=== PATIENT | male | born 1950 | race Caucasian/White ===

== ENCOUNTER 2025-07-01 18:09 | Emergency (ER) | payer MEDICARE, SELFPAY ==
[2025-07-01] VITALS (13 sets, daily range): BP systolic 105–143; BP diastolic 58–85; PULSE 62–110; RESP 10–20; TEMP 36.6–36.8; O2SAT 95–98; BMI 28.7
--- NOTE | 2025-07-01 18:22 | ED_ITS ---
Discharge Plan Disposition Patient Disposition: Home, Self-Care Condition: Good Prescriptions Prescriptions: New oxycodone 5 mg tablet 5 mg PO Q8H Qty: 12 0RF Referrals Follow up/Referrals: Liberty Cisneros APRN [Primary Care Provider, Medical] - See instructions Mc Grande DO [Staff Physician, Family Practice] - See instructions Activity Restrictions/Add. Instructions Additional Instructions/Restrictions: Please call Dr. Grande tomorrow to schedule a primary care provider visit. He can help you with your medications that you have not been prescribed. Your CT scan did not get read prior to your discharge please follow-up on MyChart for any acute findings that you may need additional specialist for. Clinical Impressions Clinical Impression: Elevated bilirubin Print Language Print Language: Mauritanian Discharge ED Provider: Emma Guido General Adult HPI General Chief complaint: Dizziness Stated complaint: blood sugar 80 , ketones in urine, Dr. Cisneros sent Time Seen by Provider: 07/01/25 18:15 History of Present Illness HPI narrative: Patient is a 75-year-old male with a past medical history of chronic back pain, A-fib on Eliquis, hypertension who presents to the emergency department from [facility]. States that he recently moved here from [place] and was getting a PCP and today was told that he had to have a urine sample. States that his urine sample had ketones in it and therefore he was sent here to the emergency department. Patient states that his urine has been darker than usual but he has not had any troubles urinating, has not had any abdominal pain nausea vomiting or diarrhea. Patient has not been sick recently. Patient denies any chest pain or shortness of breath. Patient states that he has been unable to get some of his medications filled typically takes daily Percocet patient is also on gabapentin. Patient takes Eliquis. Is unsure why they sent him here to the emergency department but is otherwise asymptomatic. Related Data Previous Rx's ?Medication ?Instructions ?Recorded oxycodone 5 mg tablet 5 mg PO Q8H #12 tabs 5 Allergies Allergy/AdvReac Type Severity Reaction Status Date / Time From Penicillin G Sodium Allergy Unknown Uncoded 08/27/17 15:16 Penicillin Allergy Unknown Uncoded 08/27/17 15:16 [facility] Disclaimer: The information contained in this section may have been updated after the patient was seen, as this information can be updated by other users. Social History Smoking Status: Current every day smoker alcohol intake: never current occupational status: other Travel in the last 8 weeks?: None ROS Obtained: Yes All systems reviewed & no additional complaints except as documented and Yes Systems reviewed as appropriate & no additional complaints except as documented Physical Exam General General appearance: alert and in no apparent distress Head Head exam: atraumatic, normocephalic and normal inspection Eye Eye exam: Present normal appearance, PERRL and EOMI; Absent scleral icterus ENT ENT exam: Present normal exam and normal external ear exam Neck Neck exam: Present normal inspection and full ROM Chest Chest inspection: Present normal inspection and symmetric chest wall rise Respiratory Respiratory exam: Present normal lung sounds bilaterally; Absent respiratory distress or wheezes Cardiovascular Cardiovascular exam: Present regular rate, normal rhythm and normal heart sounds Abdominal Exam Abdominal exam: Present soft and distention; Absent tenderness, guarding or rebound Extremities Exam Extremities exam: Present normal inspection and full ROM Back Exam Back exam: Present normal inspection and full ROM Neurological Exam Neurological exam: Present alert and oriented X3 Psychiatric Psychiatric exam: Present normal affect and normal mood Skin Skin exam: Present warm and dry Medical Decision Making Medical Records Medical records reviewed: Yes I reviewed the patient's medical records. Screening: Per USPSTF and CDC recommendations, given the prevalence of disease in our region, it is our hospital?s policy to screen for HIV and viral Hepatitis for all patients aged 18 and over and those with ongoing risk factors. Buck Inquiry Pt receiving controlled substance: No Vital Signs: 07/01/25 18:13 07/01/25 19:00 07/01/25 19:00 Temperature 98.2 F Temperature Source Oral Pulse Rate 83 Pulse Rate [Left Radial] 80 Respiratory Rate 20 10 L Blood Pressure 119/69 Blood Pressure [Right Arm] 143/72 H Blood Pressure Mean 91 Blood Pressure Mean [Right Arm] 95 02 Sat by Pulse Oximetry 97 95 Oxygen Delivery Method Room Air 07/01/25 19:15 07/01/25 19:30 07/01/25 19:30 Temperature Temperature Source Pulse Rate 82 69 Pulse Rate [Left Radial] Respiratory Rate 12 11 L Blood Pressure 124/73 Blood Pressure [Right Arm] Blood Pressure Mean 85 Blood Pressure Mean [Right Arm] 02 Sat by Pulse Oximetry 96 95 Oxygen Delivery Method 07/01/25 19:45 07/01/25 20:00 07/01/25 20:00 Temperature Temperature Source Pulse Rate 110 H 80 Pulse Rate [Left Radial] Respiratory Rate Blood Pressure 135/84 Blood Pressure [Right Arm] Blood Pressure Mean 92 Blood Pressure Mean [Right Arm] 02 Sat by Pulse Oximetry 98 95 Oxygen Delivery Method 07/01/25 20:15 07/01/25 20:30 07/01/25 20:30 Temperature Temperature Source Pulse Rate 65 77 Pulse Rate [Left Radial] Respiratory Rate Blood Pressure 143/85 H Blood Pressure [Right Arm] Blood Pressure Mean 104 Blood Pressure Mean [Right Arm] 02 Sat by Pulse Oximetry 96 96 Oxygen Delivery Method 07/01/25 20:48 07/01/25 21:00 07/01/25 21:01 Temperature Temperature Source Pulse Rate 83 74 69 Pulse Rate [Left Radial] Respiratory Rate Blood Pressure Blood Pressure [Right Arm] Blood Pressure Mean Blood Pressure Mean [Right Arm] 02 Sat by Pulse Oximetry 96 96 96 Oxygen Delivery Method 07/01/25 21:01 07/01/25 21:15 07/01/25 21:58 Temperature 97.9 F Temperature Source Pulse Rate 62 74 Pulse Rate [Left Radial] Respiratory Rate 18 Blood Pressure 105/58 L 105/69 L Blood Pressure [Right Arm] Blood Pressure Mean 74 Blood Pressure Mean [Right Arm] 02 Sat by Pulse Oximetry 97 Oxygen Delivery Method Room Air Lab Data Lab results reviewed: Yes I reviewed the patient's lab results. Lab Results 07/01/25 18:50: WBC 8.1, RBC 4.98, Hgb 15.6, Hct 45.6, MCV 91.6, MCH 31.3 H, MCHC 34.2, RDW 13.8, Plt Count 112 L, MPV 11.4 H, Neut % (Auto) 76.1, Lymph % (Auto) 14.1, Elbert % (Auto) 9.1, Eos % (Auto) 0.2, Baso % (Auto) 0.4, Neut # (Auto) 6.2, Lymph # (Auto) 1.2, Elbert # (Auto) 0.7, Eos # (Auto) 0.0, Baso # (Auto) 0.0, Sodium 134 L, Potassium 3.6, Chloride 97 L, Carbon Dioxide 29, Anion Gap 11.6, BUN 18, Creatinine 1.00, Estimated Creat Clear 89, Estimated GFR 73, Est GFR ( Amer) 89, Glucose 114 H, Calcium 9.5, Total Bilirubin 2.1 H, A ST 75 H, ALT 110 H, Alkaline Phosphatase 121, Total Creatine Kinase 63, Total Protein 7.4, Albumin 4.2, Globulin 3.2, Albumin/Globulin Ratio 1.3, Lipase 37 07/01/25 19:41: Urine Color Brown, Urine Appearance Cloudy, Urine pH 6.0, Ur Specific [place] 1.010, Urine Protein Negative, Urine Glucose (UA) Negative, Urine Ketones 1+, Urine Blood Negative, Urine Nitrate Negative, Urine Bilirubin Negative, Urine Urobilinogen 4.0, Ur Leukocyte Esterase Negative, Urine RBC 3-5, Urine WBC 5-10, Ur Squamous Epith Cells 20-50, Urine Bacteria 1+, Urine Mucus 1+ 07/01/25 20:31: Lactate 0.6 L 07/01/25 18:50 07/01/25 18:50 Orders (Tests/Meds): ED MEDICATIONS Discontinued Medications Generic Name Dose Route Start Last Admin Trade Name Freq PRN Reason Stop Dose Admin Iopamidol 75 ml 07/01/25 20:44 07/01/25 20:45 Iopamidol-370 (76%);100ml Bottle IV 07/01/25 20:45 75 ml ONCE ONE Administration Oxycodone/Acetaminophen 1 each 07/01/25 19:27 07/01/25 20:13 Oxycodone 5mg W/Apap 325mg Tablet PO 07/01/25 19:28 1 each ONCE ONE Administration Ropinirole HCl 1 mg 07/01/25 20:00 07/01/25 20:28 Ropinirole 1mg Tablet PO 07/01/25 20:01 1 mg ONCE ONE Administration Sodium Chloride 10 ml 07/01/25 20:44 07/01/25 20:45 Sodium Chloride 0.9% 10ml Syr (Rad Only) IV 07/31/25 20:43 10 ml NEEDED PRN Administration Maintain IV Site ORDERS Category Date Time Status CT abdomen pelvis w con Stat Cat Scan 07/01/25 20:17 Completed CBC w/Auto Diff [Complete Blood Count Auto Diff] Stat Lab 07/01/25 18:50 Completed CK [Creatine Kinase] Stat Lab 07/01/25 18:50 Completed CMP [Comprehensive Metabolic Panel] Stat Lab 07/01/25 18:50 Completed Lactic Acid Stat Lab 07/01/25 20:31 Completed Lipase Stat Lab 07/01/25 18:50 Completed UA [Urinalysis and Microscopic] Stat Lab 07/01/25 19:41 Completed Urine Culture Stat Micro 07/01/25 19:46 Completed Medical Decision Narrative: Is a 75-year-old gentleman with a past medical history of A-fib on Eliquis, chronic back pain, on Percocet and gabapentin who presents to the emergency department from a clinic with concern for ketones in his urine. Patient is otherwise asymptomatic. On arrival, patient was hemodynamically stable with unremarkable vital signs. Differential includes but not limited to: New onset diabetes, rhabdo myelosis, urinary tract infection, electrolyte abnormalities, amongst others. Patient's labs were reviewed and interpreted by myself: CBC showed no leukocytosis, hemoglobin was stable. CMP showed mildly elevated bilirubin at 2.1, mildly elevated LFTs. Lactate normal. UA was grossly contaminated with 20-50 squamous cells did have 5-10 white blood cells negative leuk esterase with some bacteria. Lipase normal. CK normal. Given patient's elevated LFTs and bilirubin, CT scan of the abdomen was obtained to rule out any signs of obstruction. Patient was otherwise asymptomatic I did not feel the patient's UA warranted treatment. Patient left AMA prior to CT scan being resulted. Patient was called next day to notify him of his incidental findings. Patient was otherwise discharged home in stable condition return precautions were discussed. Critical Care Critical Care Time Critical Care Time: No
--- OUTSIDE RECORDS SUMMARY | 2025-07-01 18:27 | XMS_ITS | Clinical Summary ---
Author Organization [facility] [place] [address] Care Team Providers Care Potato Spotter Name Role Phone Unavailable Primary Care Provider Unavailabl e Social History Tobacco Use Types Packs/Day Years Used Date Smoking Tobacco: Never Assessed Sex and Gender Information Value Date Recorded Sex Assigned at Not on file Legal Sex Male 7:31 AM EDT Gender Identity Not on file Sexual Orientation Not on file Plan of Treatment Health Maintenance Due Date Last Done Comments Annual Wellness Exam 1955 Hepatitis C Screening 1970 DTaP/TDaP/Td (1 - Tdap) 1971 Cologuard 1997 Colon Cancer Screening 1997 Colonoscopy 1997 FIT 1997 Sigmoidoscopy 1997 Virtual Colonography 1997 Pneumococcal Vaccine 50+ (1 of 1 - PCV) 2002 Zoster (1 of 2) 2002 COVID-19 Vaccine (2024-2 6 season) 2025 Influenza Vaccine (#1) 2025 Hepatitis B Vaccine Aged Out No longe r eligible based on patient's age to complete this topic Meningococcal B Vaccine Aged Out No l onger eligible based on patient's age to complete this topic
[2025-07-01 19:05] LABS: Hematocrit 45.6 % (42.0-52.0); Hemoglobin 15.6 g/dL (14.1-18.0); Immature Granulocytes % 0.1 %; Mean Corpuscular HGB Conc 34.2 g/dL (31.8-35.4); Mean Corpuscular Hemoglobin 31.3 pg (27.0-31.2); Mean Corpuscular Volume 91.6 fl (80-94); Nucleated Red Blood Cells % 0 %; Platelet Count 112 K/mm3 (142-424); Red Blood Count 4.98 M/mm3 (4.60-6.20); Red Cell Distribution Width-SD 47.0 fL; White Blood Count 8.1 K/mm3 (4.8-10.8)
[2025-07-01 19:07] LABS: Albumin Level 4.2 g/dl (3.5-5.0); Chloride 97 mmol/L (98-107)
[2025-07-01 19:08] LABS: Potassium 3.6 mmoL/L (3.5-5.1); Sodium 134 mmol/L (136-145)
[2025-07-01 19:10] LABS: Alanine Aminotransferase 110 U/L (12-78); Anion Gap 11.6 mEq/L (5-15); Aspartate Amino Transferase 75 U/L (17-59); Blood Urea Nitrogen 18 mg/dl (9-20); Carbon Dioxide 29 mmol/L (22.0-30.0); Creatinine Clearance Estimated 89 mL/min (50-200); Creatinine,Serum 1.00 mg/dl (0.66-1.25); Estimated Glomerular Filt Rate 73 ml/min (>60); GFR (African American) 89 ML/MIN (>60)
[2025-07-01 19:11] LABS: Albumin/Globulin Ratio 1.3 (1.1-1.8); Alkaline Phosphatase 121 U/L (38-126); Bilirubin,Total 2.1 mg/dl (0.2-1.3); Calcium 9.5 mg/dl (8.4-10.2); Creatine Kinase 63 U/L (55-170); Globulin 3.2 g/dL (1.3-3.2); Glucose 114 mg/dl (74-100); Lipase 37 U/L (23-300); Total Protein,Serum 7.4 g/dl (6.3-8.2)
[2025-07-01 19:51] LABS: Microscopic, Urine URINE MICROSCOPIC (MICROSCOPIC)
[2025-07-01 19:57] LABS: Color,Urine BROWN (Yellow); Glucose,Urine (UA) Negative (Negative); Ketones,Urine 1+ (Negative); Leukocyte Esterase,Urine Negative (Negative); PH,Urine 6.0 (5.0-8.5); Protein,Urine Negative (Negative); Specific Gravity, Urine 1.010 (1.005-1.030); Urobilinogen,Urine 4.0 EU/dl (0.2)
[2025-07-01 20:05] LABS: Bilirubin,Urine Negative (Negative)
[2025-07-01] MEDS: OXYCODONE 5MG W/APAP 325MG TABLET 1 EACH PO (20:13)
--- NOTE | 2025-07-01 20:17 | CT_ITS ---
PROCEDURE INFORMATION: Exam: CT Abdomen And Pelvis With Contrast Exam date and time: 07/01/2025 8:45 PM Age: 75 years old Clinical indication: Other: Elevated bilirubin and lfts TECHNIQUE: Imaging protocol: Computed tomography of the abdomen and pelvis with contrast. Radiation optimization: All CT scans at this facility use at least one of these dose optimization techniques: automated exposure control; mA and/or kV adjustment per patient size (includes targeted exams where dose is matched to clinical indication); or iterative reconstruction. Contrast material: ISOVUE; Contrast volume: 75 ml; Contrast route: IV; COMPARISON: No relevant prior studies available. FINDINGS: Heart: The heart is normal size with coronary artery and valvular calcifications. Liver: There is diffuse low attenuation throughout the liver consistent with fatty infiltration. No masses. Gallbladder and biliary ducts: The patient has had a cholecystectomy. There is intra-and extrahepatic ductal dilatation without obstructing mass or stone. Pancreas: There are pseudo cysts in the pancreas, measuring up to 1.8 cm in the head of the pancreas. Spleen: Normal. No splenomegaly. Adrenal glands: Normal. No mass. Kidneys and ureters: There are subcentimeter cysts throughout both kidneys. There are nonobstructing calculi in the left kidney. No ureteral stones or obstructive uropathy. Stomach and bowel: There is wall thickening and mucosal enhancement in the gastric antrum suspicious or peptic ulcer disease versus infectious or inflammatory gastritis. Appendix: No evidence of appendicitis. Intraperitoneal space: Unremarkable. No free air. No significant fluid collection. Vasculature: Unremarkable. No abdominal aortic aneurysm. Lymph nodes: Unremarkable. No enlarged lymph nodes. Urinary bladder: There is diffuse bladder wall thickening without surrounding inflammatory stranding consistent with chronic outflow obstruction. Reproductive: The prostate is enlarged, measuring 6.8 x 5.8 x 7.0 cm. Bones/joints: There are marked degenerative changes present. There is also posterior fusion hardware at the lumbosacral junction. Normal alignment. No acute fractures. There are multiple healed rib fractures. Soft tissues: There is bilateral gynecomastia. IMPRESSION: Fatty liver with gynecomastia. Infectious or inflammatory gastritis versus peptic ulcer disease in the gastric antrum. Pancreatic pseudocysts. Prostatomegaly with chronic bladder outflow obstruction. Other surgical changes as described above. Correlate with the patient's clinical history. COMMENTS: Consistent with the [employer]'s Incidental Findings Committee white paper (J Am Patricia Radiol 2018): Any incidental renal lesion less than 1 cm or classified as too small to characterize, or any incidental cystic renal lesion characterized as simple-appearing, is likely benign. No follow-up imaging is recommended for these lesions per consensus recommendations based on imaging criteria.
[2025-07-01] MEDS: ROPINIROLE 1MG TABLET 1 MG PO (20:28)
[2025-07-01] MEDS: SODIUM CHLORIDE 0.9% 10ML SYR (RAD ONLY) 10 ML IV (20:45)
[2025-07-01] MEDS: IOPAMIDOL-370 (76%);100ML BOTTLE 75 ML IV (20:45)
[2025-07-01 20:48] LABS: Bacteria,Urine 1+ /lpf; Mucus,Urine 1+ /lpf; Squamous Epithelial Cell,Urine 20-50 #/hpf (0-5)
== END 2025-07-01 22:02 | disposition home or self-care (01) ==
PROVIDERS: Emergency Provider Student in an Organized Health Care Education/Training Program; PCP Nurse Practitioner Family
DX: R82.4 Acetonuria (principal); R17 Unspecified jaundice; F17.210 Nicotine dependence, cigarettes, uncomplicated
CPT/HCPCS: 74177; 80053; 81001; 82550; 83605; 83690; 85025; 87086; 99284; Q9967

== ENCOUNTER 2025-07-06 12:32 | Emergency (ER) | payer MEDICARE, SELFPAY ==
[2025-07-06 12:54] VITALS: BP 169/67; PULSE 70; RESP 24; TEMP 36.7; O2SAT 99; BMI 27.9
[2025-07-06 12:58] VITALS: BP 169/67; PULSE 81; RESP 24; TEMP 36.7; O2SAT 99
--- NOTE | 2025-07-06 13:09 | ED_ITS ---
<Statement entered by Toi Lopez MD - 07/07/25 11:45> Toi Lopez MD: I was consulted by the [facility], and we discussed the complexity of the problems being addressed. I approved the treatment and management plan for this patient's care in the emergency department, thus performing a substantive portion of the medical decision making. Discharge Plan Disposition Patient Disposition: Home, Self-Care Prescriptions Prescriptions: New promethazine 12.5 mg tablet 12.5 mg PO TID PRN (Reason: nausea and vomiting) 3 Days Qty: 9 0RF Rx Instructions: 3 doses during day; last dose no later than 4 hr before bedtime No Action methocarbamol 750 mg tablet 750 mg PO TID Patient Comments: TAKE 1 TABLET BY MOUTH THREE TIMES DAILY gabapentin 800 mg tablet 800 mg PO TID Patient Comments: TAKE 1 TABLET BY MOUTH 3 TIMES A DAY hydroxyzine HCl 25 mg tablet 25 mg PO TID PRN Patient Comments: TAKE 1 TABLET BY MOUTH THREE TIMES DAILY NEEDED FOR ANXIETY lisinopril 5 mg tablet 5 mg PO DAILY Patient Comments: TAKE 1 TABLET BY MOUTH EVERY DAY mirtazapine 15 mg tablet 15 mg PO DAILY Patient Comments: TAKE 1 TABLET BY MOUTH EVERY DAY terazosin 10 mg capsule 10 mg PO DAILY Patient Comments: TAKE 1 CAPSULE BY MOUTH EVERY DAY escitalopram oxalate 10 mg tablet 10 mg PO DAILY Patient Comments: TAKE 1 TABLET BY MOUTH EVERY DAY metoprolol tartrate 25 mg tablet 25 mg PO BID Patient Comments: TAKE 1 TABLET BY MOUTH TWICE DAILY thiamine mononitrate (vit B1) [Vitamin B-1 (mononitrate)] 100 mg tablet 100 mg PO DAILY Patient Comments: TAKE 1 TABLET BY MOUTH DIRECTED Eliquis 5 mg tablet 5 mg PO BID Patient Comments: TAKE 1 TABLET BY MOUTH TWICE DAILY potassium chloride 20 mEq tablet extended release PO Patient Comments: TAKE 1 TABLET BY MOUTH FOUR TIMES DAILY bisacodyl [Dulcolax (bisacodyl)] 10 mg suppository 10 mg NE DAILY 1 Days Qty: 12 0RF magnesium citrate Solution 150 ml PO BID PRN (Reason: constipation) Qty: 296 0RF oxycodone 5 mg tablet 5 mg PO Q8H Qty: 12 0RF Referrals Follow up/Referrals: Glen Mulligan II, MD [Staff Physician, Gastroenterology] - See instructions Mc Grande DO [Primary Care Provider, Family Practice] - See instructions Activity Restrictions/Add. Instructions Additional Instructions/Restrictions: Thank you for allowing us to care for you. Your symptoms are likely due to opioid withdrawal. Please take the Phenergan 3 times a day as needed for nausea and vomiting. Continue to follow-up with Dr. Grande. You should follow-up with Dr. Mulligan due to the findings on your CAT scan because you may need an endoscopy(scope) to look at your stomach further. Please call his office to schedule a visit. Clinical Impressions Clinical Impression: Opioid withdrawal Print Language Print Language: Israeli Discharge ED Provider: Toi Lopez General Adult HPI General Chief complaint: PAIN Stated complaint: constipation Time Seen by Provider: 07/06/25 13:04 Mode of Arrival: Ambulatory Source of Information: Patient Description of Symptoms (Recalled from ER Triage Doc. by RN): PT c/o constipation and a headache for three days. History of Present Illness HPI narrative: This is a 75-year-old male with a history of chronic back pain, A-fib manage on Eliquis, and hypertension who presents to the emergency department today for evaluation of abdominal pain. Patient reports worsening abdominal pain for the last 4 days. His last bowel movement was 5 days ago and patient believes he is constipated which is causing his pain. He was evaluated by his primary care provider today and they recommended mag citrate. Patient reports he has been taking the mag citrate all morning with no relief in symptoms and his abdomen seems to be growing in size secondary to the increased intake. He says he feels like he needs to have a bowel movement but cannot get it out. He denies any pain with urination. Patient reports he typically has a daily, or every other day bowel movement. He is not vomiting but has felt nauseous. He denies any focal abdominal pain but reports it is throughout the abdomen and notes his abdomen feels tight. He denies any chest pain or shortness of breath. Related Data Home Medications ?Medication ?Instructions ?Recorded ?Confirmed apixaban 5 mg tablet (Eliquis) 5 mg PO BID 07/06/25 escitalopram oxalate 10 mg tablet 10 mg PO DAILY 07/0607/06/25 gabapentin 800 mg tablet 800 mg PO TID 07/06/2507/06 hydroxyzine HCl 25 mg tablet 25 mg PO TID PRN 07/06/25 07/06/25 lisinopril 5 mg tablet 5 mg PO DAILY 07/06/2507/06 methocarbamol 750 mg tablet 750 mg PO TID 07/06/25 metoprolol tartrate 25 mg tablet 25 mg PO BID 07/06/25 07/06/25 mirtazapine 15 mg tablet 15 mg PO DAILY 07/06/2506/10 potassium chloride 20 mEq meq PO 07/06/25 07/06/25 tablet,extended release terazosin 10 mg capsule 10 mg PO DAILY 07/06/2506/10 thiamine mononitrate (vit B1) 100 100 mg PO DAILY 06/1007/06/25 mg tablet (Vitamin B-1 (mononitrate)) Previous Rx's ?Medication ?Instructions ?Recorded oxycodone 5 mg tablet 5 mg PO Q8H #12 tabs 5 bisacodyl 10 mg rectal suppository 10 mg NE DAILY 1 da y #12 ea 07/06/25 (Dulcolax (bisacodyl)) magnesium citrate 150 ml PO BID PRN constipati on 07/06/25 #296 mL promethazine 12.5 mg tablet 12.5 mg PO TID PRN nausea and 07/06/25 vomiting 3 days #9 tabs Allergies Allergy/AdvReac Type Severity Reaction Status Date / Time erythromycin base AdvReac Mild Unknown Verified 07/06/25 11:36 allergy reaction tetracycline AdvReac Mild Vomiting Verified 07/06/25 11:36 From Penicillin G Sodium Allergy Unknown Rash Uncoded 07/06/25 11:36 Penicillin Allergy Unknown Rash Uncoded 07/06/25 11:36 PFS PFS Disclaimer: The information contained in this section may have been updated after the patient was seen, as this information can be updated by other users. Medical History (Updated 07/06/25 @ 14:06 by FLASH Allan) Elevated bilirubin HTN (hypertension), malignant Surgical History History of knee surgery Hx of decompression of ulnar nerve History of cholecystectomy Social History (Updated 07/06/25 @ 11:45 by Anisha Sharp MA) Smoking Status: Current every day smoker alcohol intake: never substance use type: denies use current occupational status: other Travel in the last 8 weeks?: None Have you lived/traveled outside US in past 30 days?: No Contact w/someone who lives/traveled outside US past 30 days?: No Exposure to someone with infectious disease in past 14 days?: No Do you have a fever (greater than 100.4 F or 38 C)?: No Have you tested positive for COVID-19?: No Exposed to someone with COVID-19 in past 14 days?: No Do you have a sore throat?: No Do you have a cough?: No Do you have any weakness?: No Do you have any diarrhea?: No Are you experiencing any unusual bleeding?: No Do you have any muscle aches/pain?: No Do you have any abdominal pain?: No Are you experiencing loss of taste or smell?: No Other Medical History Have you received the Pneumonia Vaccine: No ROS Obtained: Yes Systems reviewed as appropriate & no additional complaints except as documented Physical Exam General General appearance: alert and in no apparent distress Head Head exam: atraumatic and normocephalic Neck Neck exam: Present full ROM Respiratory Respiratory exam: Present normal lung sounds bilaterally; Absent respiratory distress Cardiovascular Cardiovascular exam: Present regular rate and normal rhythm Abdominal Exam Abdominal exam: Present soft and tenderness; Absent distention Comment: The abdomen is soft and nondistended. Patient reports generalized tenderness throughout the abdomen. There is no guarding or rebound tenderness. Negative Wilde sign. Neurological Exam Neurological exam: Present alert and oriented X3 Medical Decision Making Medical Records Screening: Per USPSTF and CDC recommendations, given the prevalence of disease in our region, it is our hospital?s policy to screen for HIV and viral Hepatitis for all patients aged 18 and over and those with ongoing risk factors. Buck Inquiry Pt receiving controlled substance: No Vital Signs: 07/06/25 12:54 07/06/25 12:58 Temperature 98.1 F 98.1 F Temperature Source Temporal Artery Scan Temporal Artery Scan Pulse Rate 81 Pulse Rate [Right] 70 Respiratory Rate 24 24 Blood Pressure 169/67 H Blood Pressure [Right Arm] 169/67 H Blood Pressure Mean [Right Arm] 101 Blood Pressure Source Automatic Cuff Blood Pressure Source [Right Arm] Automatic Cuff Blood Pressure Position Sitting Blood Pressure Position [Right Arm] Sitting 02 Sat by Pulse Oximetry 99 99 Oxygen Delivery Method Room Air Room Air Lab Data Lab Results 07/06/25 13:16: WBC 10.8, RBC 5.84, Hgb 18.6 H, Hct 52.8 H, MCV 90.4, MCH 31.7 H , MCHC 35.0, RDW 13.1, Plt Count 119 L, MPV 12.4 H, Neut % (Auto) 79.6, Lymph % (Auto) 11.0, Cache % (Auto) 8.1, Eos % (Auto) 0.2, Baso % (Auto) 0.6, Neut # (Auto) 8.6 H, Lymph # (Auto) 1.2, Cache # (Auto) 0.9, Eos # (Auto) 0.0, Baso # (Auto) 0.1, Sodium 135 L, Potassium 3.7, Chloride 97 L, Carbon Dioxide 25, Anion Gap 16.7 H, BUN 12, Creatinine 1.00, Estimated Creat Clear 87, Estimated GFR 73, Est GFR ( Amer) 89, Glucose 110 H, Calcium 10.7 H, Total Bilirubin 2.1 H, AST 54, ALT 74, Alkaline Phosphatase 143 H, Total Protein 10.9 H D, Albumin 4.8, Globulin 6.1 H, Albumin/Globulin Ratio 0.8 L, Lipase 85 07/06/25 13:16 07/06/25 13:16 Orders (Tests/Meds): ED MEDICATIONS Generic Name Dose Route Start Last Admin Trade Name Freq PRN Reason Stop Dose Admin Ropinirole HCl 1 mg 07/06/25 16:30 Ropinirole 1mg Tablet PO 07/06/25 16:31 ONCE ONE Sodium Chloride 10 ml 07/06/25 15:00 07/06/25 15:01 Sodium Chloride 0.9% 10ml Syr (Rad Only) IV 08/05/25 14:59 10 ml NEEDED PRN Administration Maintain IV Site Discontinued Medications Generic Name Dose Route Start Last Admin Trade Name Freq PRN Reason Stop Dose Admin Iopamidol 75 ml 07/06/25 15:00 07/06/25 15:00 Iopamidol-370 (76%);100ml Bottle IV 07/06/25 15:01 75 ml ONCE ONE Administration Promethazine HCl 25 mg 07/06/25 13:33 07/06/25 14:08 Promethazine Hcl 25mg/Ml 1ml Vial IV 07/06/25 13:34 25 mg ONCE ONE Administration Sodium Chloride 1,000 ml 07/06/25 13:19 07/06/25 14:08 Sodium Chloride 0.9% 500ml Bag IV 07/06/25 13:20 1,000 ml ONCE ONE Administration Sodium Chloride 25 ml 07/06/25 13:33 Sodium Chloride 0.9% 25ml Bag IV 07/06/25 13:34 ONCE ONE ORDERS Category Date Time Status CT abdomen pelvis w con Stat Cat Scan 07/06/25 13:17 Completed Consult Em Physician [CONS] Routine Cons 07/06/25 14:18 Active CBC w/Auto Diff [Complete Blood Count Auto Diff] Stat Lab 07/06/25 13:16 Completed CMP [Comprehensive Metabolic Panel] Stat Lab 07/06/25 13:16 Completed Lipase Stat Lab 07/06/25 13:16 Completed Opioid Risk-Male Personal hx rx drug abuse: Yes Age: 45+ Medical Decision Narrative: In summary, this is a 75-year-old male with a history of chronic back pain, A- fib on Eliquis, and hypertension who presents to the emergency department today for worsening abdominal pain of the last several days. Patient's last bowel movement was 5 days ago. He reports worsening generalized abdominal pain since then. Today he feels nauseous but has not vomited. He went to his primary care provider who told him to start mag citrate. Patient believes he needs a cleanout from below so he sought further care. Patient reports recent visit after being sent in by his primary care provider for ketones in urine. Upon chart review, patient had reassuring workup. Patient had CT of the abdomen and pelvis performed 3 days ago on 07/03/25 at which time there was no evidence of acute abdomen or intra-abdominal emergency. It is worth noting that the patient's chronic pain is managed with 7.5 mg of oxycodone 3 times a day. Patient reports last dose was late last night. On exam patient appears anxious. Vital signs are stable. He is dry heaving and diaphoretic but is not vomiting. The abdomen is soft and nondistended. Patient reports generalized tenderness to the abdomen but there is no guarding or rebound tenderness. Negative Wilde sign. Respiratory rate and effort are normal. Lungs are clear to auscultation bilaterally without adventitious sounds. Differential diagnoses include but are not limited to constipation, bowel obstruction, gastritis, opioid withdrawal, among others. We will obtain laboratory workup including CBC, CMP, lipase. Will obtain CT of the abdomen and pelvis with IV contrast. Will give IV fluid bolus and Zofran. 1:35PM Patient tells RN he actually took 5mg of oxycodone today but had not had it in the previous 3 days. Opioid withdrawal is most consistent with patient's current symptoms and physical exam. Patient declines Zofran. We will give phenergan for symptom management. I left a message with Dr. Grande's office (patient's PCP) to return call so we can clarify the plan for patient's opioid withdrawal given he used to fill prescriptions in [place] and is out of medications. US-guided IV performed and IV access has been obtained. 2:20PM We spoke with patient's PCP regarding management plan. We will rule out acute process and Dr. Grande will help coordinate follow up and management of patient's opioid use. Labs reviewed and nonactionable. Stable from labs obtained 5 days ago. No leukocytosis, anemia, significant electrolyte abnormality. Total bilirubin 2.1, same level as recent visit. Pending CT scan. CT scan stable from recent visit. Note of mucosal thickening of the gastric antrum and pylorus. Because of this patient will follow-up with GI. Patient was given Dr. Mulligan information and he will call to schedule a visit as he may need endoscopy in the future. Patient understands this. Dr. Grande is helping arrange follow-up for pain management. 4:30PM Patient remains well. Symptoms resolved following Phenergan. No emergent etiology at this time. Patient likely experiencing opioid withdrawal. He denies any abdominal pain or nausea since receiving the Phenergan. He will follow-up with his PCP and will continue to follow recommendations for pain management. Return precautions were discussed and understood. Patient is appropriate for safe discharge home at this time. Critical Care Critical Care Time Critical Care Time: No
--- NOTE | 2025-07-06 13:17 | CT_ITS ---
FINAL REPORT TECHNIQUE: After the administration of intravenous contrast, axial images were obtained through the abdomen and pelvis by computed tomography. This study was performed with technique to keep radiation doses as low as reasonably achievable, (ALARA). Individualized dose reduction techniques using automated exposure control or adjustment of the MA and/or KV according to the patient's size were employed. CLINICAL HISTORY: flank pain; uti COMPARISON: 06/28/2025 FINDINGS: Abdomen: The lung bases are clear. There is elevation of the left hemidiaphragm. A calcified gallstone measuring 2 cm is seen within a contracted gallbladder. The liver is normal in size and attenuation. The spleen is unremarkable. There is a cystic focus at the head of the pancreas measuring 1.8 cm, similar to prior exam. The adrenals are normal. The pancreas is unremarkable. The kidneys enhance appropriately. There is bilateral perinephric stranding. The aorta is normal in caliber. There is no free fluid or adenopathy. Again seen is abnormal mucosal thickening at the gastric antrum extending to the pylorus. There is also redemonstration of a rounded structure in the left upper quadrant measuring 2.2 cm with extensive surrounding inflammatory reaction, unchanged from prior exam. Pelvis: The appendix is not identified. Prostate is moderately enlarged. The urinary bladder is decompressed. There is no free fluid or adenopathy. There is advanced hypertrophic change of degenerative disc disease throughout the lumbar spine. IMPRESSION: Redemonstration of mucosal thickening at the gastric antrum and pylorus which could be related to infectious gastritis. Neoplastic involvement considered less likely. Recommend upper endoscopy for further evaluation. Pseudocyst versus epithelial cyst at the pancreatic head. Cholelithiasis. 2.2 cm structure in the left upper quadrant with surrounding inflammation, significance unclear but stable from prior exam. Recommend follow-up in 6 weeks and clinical correlation. Reviewed, Interpreted and Dictated by Lazaro Malave MD Transcribed by Sabine Ochoa Authenticated and [facility]
--- NOTE | 2025-07-06 13:52 | PC.NURSE ---
COWS- 20 pt states he usually takes 7.5mg of hydrocodone 3x a day. he has only had one dose in 4 days.
[2025-07-06 14:02] LABS: Hematocrit 52.8 % (42.0-52.0); Immature Granulocytes % 0.5 %; Mean Corpuscular HGB Conc 35.0 g/dL (31.8-35.4); Mean Corpuscular Hemoglobin 31.7 pg (27.0-31.2); Mean Corpuscular Volume 90.4 fl (80-94); Nucleated Red Blood Cells % 0 %; Platelet Count 119 K/mm3 (142-424); Red Blood Count 5.84 M/mm3 (4.60-6.20); Red Cell Distribution Width-SD 43.5 fL; White Blood Count 10.8 K/mm3 (4.8-10.8)
[2025-07-06 14:06] LABS: Albumin Level 4.8 g/dl (3.5-5.0); Chloride 97 mmol/L (98-107); Potassium 3.7 mmoL/L (3.5-5.1); Sodium 135 mmol/L (136-145)
[2025-07-06 14:07] LABS: Hemoglobin 18.6 g/dL (14.1-18.0)
[2025-07-06] MEDS: PROMETHAZINE HCL 25MG/ML 1ML VIAL 25 MG IV (14:08)
[2025-07-06] MEDS: SODIUM CHLORIDE 0.9% 500ML BAG 1000 ML IV (14:08)
[2025-07-06 14:09] LABS: Alanine Aminotransferase 74 U/L (12-78); Albumin/Globulin Ratio 0.8 (1.1-1.8); Alkaline Phosphatase 143 U/L (38-126); Anion Gap 16.7 mEq/L (5-15); Aspartate Amino Transferase 54 U/L (17-59); Bilirubin,Total 2.1 mg/dl (0.2-1.3); Blood Urea Nitrogen 12 mg/dl (9-20); Carbon Dioxide 25 mmol/L (22.0-30.0); Creatinine Clearance Estimated 87 mL/min (50-200); Creatinine,Serum 1.00 mg/dl (0.66-1.25); Estimated Glomerular Filt Rate 73 ml/min (>60); GFR (African American) 89 ML/MIN (>60); Globulin 6.1 g/dL (1.3-3.2); Lipase 85 U/L (23-300); Total Protein,Serum 10.9 g/dl (6.3-8.2)
[2025-07-06 14:10] LABS: Calcium 10.7 mg/dl (8.4-10.2); Glucose 110 mg/dl (74-100)
[2025-07-06] MEDS: IOPAMIDOL-370 (76%);100ML BOTTLE 75 ML IV (15:00)
[2025-07-06] MEDS: SODIUM CHLORIDE 0.9% 10ML SYR (RAD ONLY) 10 ML IV (15:01)
[2025-07-06 16:52] VITALS: BP 151/72; PULSE 81; RESP 18; TEMP 36.7; O2SAT 98
== END 2025-07-06 16:53 | disposition home or self-care (01) ==
PROVIDERS: Physician Assistant; Emergency Provider Emergency Medicine; PCP Internal Medicine
DX: R10.84 Generalized abdominal pain (principal); F11.23 Opioid dependence with withdrawal; K59.00 Constipation, unspecified; R11.0 Nausea; F17.210 Nicotine dependence, cigarettes, uncomplicated; I48.0 Paroxysmal atrial fibrillation; Z79.01 Long term (current) use of anticoagulants
CPT/HCPCS: 74177; 80053; 83690; 85025; 96374; 99282; 99284; J2550; J7040; Q9967

== ENCOUNTER 2025-07-29 03:06 | Observation (INO) | payer MEDICARE, SELFPAY ==
--- OUTSIDE RECORDS SUMMARY | 2024-01-27 03:45 | XMS_ITS ---
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 edema or discoloration noted Range of motion: ROM moderately limited, moderate pain induced. Hyperextension - Pain with Facet loading In addition to the above examination the patient does have a small amount of erythema in both lower extremities with 1+ edema. He says that he was given a recent Doppler evaluation that was negative for DVT. He has no weakness in the lower extremities. He has good range of motion of both knees. There is no swelling or discoloration at the knees. He does have mild knee tenderness to palpation but he has full range of motion. He has good range of motion of the left shoulder but it is tender along the posterior and anterior joint space as well as to a lesser degree at the AC joint on the left. May 29, 2023 Inspection: Spinal alignment no abnormal curvature noted Palpation: diffuse tenderness t hroughout lumbar region, most particularly over lower lumbar facet joints. Spasms absent
--- OUTSIDE RECORDS SUMMARY | 2024-08-15 16:00 | XMS_ITS ---
Author Organization [facility] Address [address] [place] [address] Care Team Providers Care Director Of Consumer Affairs Name Role Phone Yue Vick Primary Care Provider Benjamin Whitney Unavailable Self Referral, Self Unavailable Unavailable Migration, Provider Unavailable Unavailable Allergies Allergen (clinical drug ingredient) Drug/Non Drug Allergy documented on EMR Reaction Allergy Type Onset Date Status Penicillin hives Drug Allergy Active REASON FOR VISIT [facility]um To [facility] Conversion Encounter Medications Medication SIG (Take, Route, Frequency, Duration) Notes Start Date End Date Status Metoprolol Succinate ER *Please review and pick correct strength-formulation from Medispan options. If intended option is not shown, discontinue and re-order from Quick Search* Active Digoxin *Please review a nd pick correct strength-formulation from Medispan options. If intended option is not shown, discontinue and re-order from Quick Search* Active Percocet 325 MG-7.5 MG TABLET 1 TAB(S) ORALLY 4 PER DAY *Please review and pick correct strength-formulation from Medispan options. If intended option is not shown, discontinue and re-order from Quick Search* Active SEROquel *Please review a nd pick correct strength-formulation from Medispan options. If intended option is not shown, discontinue and re-order from Quick Search* Active Encounters Encounter Location Date Provider Diagnosis [facility] [address] [place] [address] 08/15/2024 Provider Migration Plan Of Treatment No Information Progress Notes * Alirio OBRIENDOB: 2 (75 yo M)Acc No.[id number]:08/15/2024 Patient: Alirio Contreras Provider: Pepe knight Migration :1950 A ge:74 Y S ex:Male Date:08/15/2024 Address:[address] [place] [address], [address] [facility], [id number] Pcp:Yue Vick Subjective: * Chief Complaints: * M ultum To Medispan Conversion Encounter * Medications: T akingSEROquel , Notes to Pharmacist: *Please review and pick correct strength-formulation from Medispan options. If intended option is not shown, discontinue and re-order from Quick Search*Metoprolol Succinate ER , Notes to Pharmacist: *Please review and pick correct strength-formulation from Medispan options. If intended option is not shown, discontinue and re-order from Quick Search*Digoxin , Notes to Pharmacist: *Please review and pick correct strength-formulation from Medispan options. If intended option is not shown, discontinue and re-order from Quick Search*Percocet 325 MG-7.5 MG TABLET 1 TAB(S) ORALLY 4 PER DAY , Notes to Pharmacist: *Please review and pick correct strength-formulation from Medispan options. If intended option is not shown, discontinue and re-order from Quick Search*Taking SEROquel , Notes to Pharmacist: *Please review and pick correct strength-formulation from Medispan options. If intended option is not shown, discontinue and re-order from Quick Search*Taking Metoprolol Succinate ER , Notes to Pharmacist: *Please review and pick correct strength-formulation from Medispan options. If intended option is not shown, discontinue and re-order from Quick Search*Taking Digoxin , Notes to Pharmacist: *Please review and pick correct strength-formulation from Medispan options. If intended option is not shown, discontinue and re-order from Quick Search*Taking Percocet 325 MG-7.5 MG TABLET 1 TAB(S) ORALLY 4 PER DAY , Notes to Pharmacist: *Please review and pick correct strength-formulation from Medispan options. If intended option is not shown, discontinue and re-order from Quick Search* * Allergies: P enicillin: hives - Allergy - Criticality High * Electronic signature of Prov ider Migration on 07/29/2025 at 03:16 AM EST Sign off status: Pending * Provider: Pepe knight Migration Date: 10/16/2023 Generated for Manuel medellin/Corinne/Yola on: 09/28/2024 03:16 AM EST
[2025-07-29] VITALS (16 sets, daily range): BP systolic 131–157; BP diastolic 67–106; PULSE 77–100; RESP 16–18; TEMP 36.4–37.7; O2SAT 93–98; BMI 27.1; BMI 29.4
--- OUTSIDE RECORDS SUMMARY | 2025-07-29 03:16 | XMS_ITS | Encounter Summary ---
Author Organization [facility] Address [address] [place] [address] Care Team Providers Care Informatica Architect Name Role Phone Pettry, Summer Unavailable Unavailable Rosa Skinner Unavailable Unavailable Yue Vick MD Primary Care Provider [phone] Pettry, Summer Unavailable Unavailable Pettry, Summer Unavailable Unavailable Ana Perea RN Unavailable Unavailable Pettry, Summer Unavailable Unavailable Pettry, Summer Unavailable Unavailable Reason for Visit * Reason Comments Med Refill Encounter Details Date Type Department Care Team (Late st Contact Info) Description 05/16/2021 Refill [facility] Medicine [address], [address] [place] [address] Glenna Winston MD [address] [facility] [address] [place] [address] Social History Tobacco Use Types Packs/Day Years Used Date Smoking Tobacco: Some Days Cigarettes 0.5 20 Started: 2020 Smokeless Tobacco: Never Alcohol Use Standard Drinks/Week Comments Yes 0 (1 standard drink = 0.6 oz pur e alcohol) daily PHQ-2 Answer Date Recorded Patient Health Questionnaire-2 Score 4 04/11/2021 Exercise Vital Sign Answer Date Recorde d On average, how many days pe r week do you engage in moderate to strenuous exercise (like a brisk walk)? 0 days 04/11/2021 On average, how many minutes do you engage in exercise at this level? 0 min 04/11/2021 Hunger Vital Sign Answer Date Recorded Within the past 12 months, y ou worried that your food would run out before you got the money to buy more. Never true 04/11/20 21 Within the past 12 months, t he food you bought just didn't last and you didn't have money to get more. Never true 04/11/2021 PRAPARE - Transportation Answer Date Re corded In the past 12 months, has l ack of transportation kept you from medical appointments or from getting medications? No 11/2020 In the past 12 months, has l ack of transportation kept you from meetings, work, or from getting things needed for daily living? No 04/11/2021 Housing Stability Vital Sign Answer [facility] Recorded In the last 12 months, was t here a time when you were not able to pay the mortgage or rent on time? No 04/11/2021 In the last 12 months, how many places have you lived? 1 04/11/2021 In the last 12 months, was t here a time when you did not have a steady place to sleep or slept in a nursing home (including now)? No 04/11/2021 Sex and Gender Information Value Date Recorded Sex Assigned at Male 12/24/2023 9:18 AM EDT Legal Sex Male 7:38 PM EDT Gender Identity Male 12/24/2023 9:18 AM EDT Sexual Orientation Not on file COVID-19 Exposure Response Date Recorded In the last month, have you been in contact with someone who was confirmed or suspected to have Coronavirus / COVID-19? No / Unsure 05/14/2021 7:26 PM EDT documented as of this encounter Miscellaneous Notes * Telephone Encounter - Kennedi Perez RN - 05/22/2021 10:32 AM EDT Called and spoke with patient's pharmacy. They tell me that the patient does have refills remainingon both of these medications. Pharmacy will prepare the prescriptions for the patient and notify him once ready. * Telephone Encounter - Kennedi Perez RN - 05/19/2021 8:23 AM EDT Called and spoke with patient, he says he doesn't think he has any refills left at the pharmacy. Advised I would check with them and renew if needed. Called pharmacy to make sure they had these on file. No answer, message states pharmacy opens at 9:00am. * Telephone Encounter - Kennedi Perez RN - 05/19/2021 8:16 AM EDT Seroquel and Lexapro renewed per Dr Angel in November 2020 for one year supply. Patient should stillhave refills remaining * Telephone Encounter - Sneha Singh, PharmD - 05/18/2021 10:08 PM EDT Refill request does not meet protocol. Sending to clinic triage for further review. Thank you! Additional information: Pt has a PCP listed outside [facility]? documented in this encounter Plan of Treatment Upcoming Encounters Date Type Department Care Team (Late st Contact Info) Description 09/07/2025 2:00 PM EST Office Visit [facility] [address] [facility] [place] [address] Karen Harkins MD [address] [place] [address] documented as of this encounter Visit Diagnoses Not on filedocumented in this encounter Additional Health Concerns Infection Onset Date Last Indicated Resolved Time COVID-19 Rule-Out 05/13/2022 05/13/2022 05/13/2022 8:45 PM EDT COVID-19 Rule-Out 07/24/2022 07/24/2022 07/24/2022 9:41 AM EST Respiratory Rule-Out 07/25/2022 07/25/2022 022 3:54 PM EST Respiratory Rule-Out 01/11/2023 01/11/2023 023 4:15 PM EDT Gastrointestinal Rule-Out 01/11/2023 01/11/2023 4:44 AM EDT COVID-19 Rule-Out 06/30/2023 06/30/2023 06/30/2023 9:02 PM EDT COVID-19 Rule-Out 12/31/2023 12/31/2023 12/31/2023 12:10 PM EDT Assessment Noted Time PHQ-9 Depression Total Score: 13 021 3:13 PM EDT A fall risk assessment has been complete d for the patient 04/11/2021 3:26 PM EDT documented as of this encounter Care Teams Informatica Architect Relationship Specialty Start Date End [place] [address] PCP - General 05/02/21 Summer Falk [employer] [facility] 03/10/21 06/26/21 Rosa Skinner Community Health Worker [employer] Helper 03/20/21 06/26/21 Summer Falk [employer] 03/16/22 04/17/22 [place] [address] [employer] 10/02/22 11/01/22 Ana Perea RN EMERGENCY SERVICES None Registered Nurse Emergency Medicine 06/30/23 06/30/23 [place] [address] [employer] 07/02/23 08/04/23 [place] [address] [employer]izer Feeder 12/25/23 01/24/24 documented as of this encounter
--- OUTSIDE RECORDS SUMMARY | 2025-07-29 03:16 | XMS_ITS | Clinical Summary ---
Author Organization [facility] [place] [address] Care Team Providers Care Horticultural Farm Manager Name Role Phone Unavailable Primary Care Provider [...]
--- OUTSIDE RECORDS SUMMARY | 2025-07-29 03:16 | XMS_ITS | Encounter Summary ---
Author Organization Healthcare Address [address] [place] [address] Care Team Providers Care Shared Services Manager Name Role Phone Yue Vick MD Primary Care Provider [phone] Summer Falk Unavailable Unavailable Encounter Details Date Type Department Care Team (Late st Contact Info) Description 08/27/2023 [facility] [address] [place] [address] Liberty Cisneros, LABORATORY TECHNICAL SPECIALIST [address] [facility] [place] [address] Daytime somnolence (Primary Dx) Social History Tobacco Use Types Packs/Day Years Used Date Smoking Tobacco: Some Days Cigarettes 0.5 20 Started: 2019 Smokeless Tobacco: Never Alcohol Use Standard Drinks/Week Comments Yes 0 (1 standard drink = 0.6 oz pure alcohol) Last drink 11/25/22 (hx drinking fifth vodka daily) Humiliation, Afraid, Rape, and Kick questionnair e Answer Date Recorded Within the last year, have y ou been afraid of your partner or ex-partner? No 07/09/2023 Within the last year, have y ou been humiliated or emotionally abused in other ways by your partner or ex-partner? No Within the last year, have y ou been kicked, hit, slapped, or otherwise physically hurt by your partner or ex-partner? No 07/09/2023 Within the last year, have y ou been raped or forced to have any kind of sexual activity by your partner or ex-partner? No 07/09/2023 PHQ-2 Answer Date Recorded Patient Health Questionnaire-2 Score 0 08/28/2023 Exercise Vital Sign Answer Date Recorde d [...] you got the money to buy more. Sometimes true Within the past 12 months, t he food you bought just didn't last and you didn't have money to get more. Never true PRAPARE - Transportation Answer Date Re corded In the past 12 months, has l ack of transportation kept you from medical appointments or from getting medications? Yes 06/11 In the past 12 months, has l ack of transportation kept you from meetings, work, or from getting things needed for daily living? Yes 07/09/2023 Housing Stability Vital Sign Answer [facility] e Recorded In the last 12 months, was t here a time when you were not able to pay the mortgage or rent on time? No 07/09/2023 [address] of [address] Lived in the Last Year Not on f ile 07/09/2023 In the last 12 months, was t here a time when you did not have a steady place to sleep or slept in a long-term (including now)? No 07/09/2023 CAGE ASSESSMENT Answer Date Recorded Due to the following: Medical status 07/17/2023 Maximum number of drinks you had on a given occasion in the last month? 4 drinks 07/17/2023 How many alcoholic Beverages do you typically drink in a week? 15 or more per week 07/17/2023 Have you ever felt you shoul d CUT down on your drinking? 0 07/17/2023 Have you been ANNOYED by peo ple criticizing your drinking? 0 07/17/2023 Have you felt GUILTY about your drinking? 0 07/17/2023 Have you had a drink first t [place] in the morning (EYE-MARINE ERECTOR) to steady your nerves or to get rid of a hangover? 0 07/17/2023 CAGE Questionnaire Score 0 023 Utilities Answer Date Recorded In the past 12 months has e electric, gas, oil, or water company threatened to shut off services in your home? No 07/09/2023 Sex and Gender Information Value Date Recorded Sex Assigned at Male 12/24/2023 9:18 AM EDT Legal Sex Male 7:38 PM EDT Gender Identity Male 12/24/2023 9:18 AM EDT Sexual Orientation Not on file documented as of this encounter Functional Status * Are you deaf or do you have serious difficulty hearing? Answer Date of Assessment Author No 12/05/2022 11:43 AM Diane Sales RN * Are you blind or do you have serious difficulty seeing, even when wearing glasses? Answer Date of Assessment Author No 12/05/2022 11:43 AM Diane Sales RN * Do you have serious difficulty walking or climbing stairs? Answer Date of Assessment Author Yes 12/05/2022 11:43 AM Diane Sales RN * Do you have serious difficulty dressing or bathing? Answer Date of Assessment Author No 12/05/2022 11:43 AM Diane Sales RN * Because of a physical, mental, or emotional condition, do you have serious difficulty doing errandsalone such as visiting the doctor? Answer Date of Assessment Author No 12/05/2022 11:43 AM Diane Sales RN * Over the past 2 weeks, how often have you been bothered by any of the following problems? Question Answer Date of Assessment Author Little interest or pleasure in doing things Not at all 08/28/2023 8:00 AM Jones Barger Feeling down, depressed, or hopeless Not at all 08/10 8:00 AM Jones Barger Patient Health Questionnaire-2 Score 0 08/10 8:00 AM Jones Barger documented as of this encounter Mental Status * Because of a physical, mental, or emotional condition, do you have serious difficulty concentrating, remembering, or making decisions? (5 years old or older) Answer Entry Date Author No 12/05/2022 11:43 AM Diane Sales, RN documented in this encounter Plan of Treatment Upcoming Encounters Date Type Department Care Team (Late st Contact Info) Description 09/07/2025 2:00 PM EST Office Visit [facility] [address] [place] [address] Karen Harkins MD [address] [place] [phone] documented as of this encounter Visit Diagnoses Diagnosis Daytime somnolence- Primary documented in this encounter Additional Health Concerns Infection Onset Date Last Indicated Resolved Time COVID-19 Rule-Out 12/31/2023 12/31/2023 12/31/2023 12:10 PM EDT Assessment Noted Time PHQ-9 Depression Total Score: 13 021 3:13 PM EDT A fall risk assessment has been complete d for the patient 03/20/2022 8:46 AM EDT A Body Mass Index follow-up plan has been documented for the patient 07/19/2023 3:35 PM EST documented as of this encounter Care Teams Shared Services Manager Relationship Specialty Start Date [place] [address] PCP - General 05/02/21 [place] [address] [employer] 12/25/23 01/24/24 documented as of this encounter
--- OUTSIDE RECORDS SUMMARY | 2025-07-29 03:16 | XMS_ITS | Encounter Summary ---
Author Organization [facility] Address [address] [place] [address] Care Team Providers Care Jigger Machine Operator Name Role Phone Yue Vick MD Primary Care Provider [phone] Ana Perea RN Unavailable Unavailable Pettry, Summer Unavailable Unavailable Pettry, Summer Unavailable Unavailable Encounter Details Date Type Department Care Team (Late Contact Info) Description 01/14/2023 Lab Requisition [facility] [address] [place] [address] Gopi Modi MD [address] [place] [address] Encounter for general adult medical examination without abnormal findings Social History Tobacco Use Types Packs/Day Years Used Date Smoking Tobacco: Some Days Cigarettes 0.5 20 Started: 2019 Smokeless Tobacco: Never Alcohol Use Standard Drinks/Week Comments Yes 0 (1 standard drink = 0.6 oz pure alcohol) Last drink 11/25/22 (hx drinking fifth vodka daily) PHQ-2 Answer Date Recorded Patient Health Questionnaire-2 Score 0 03/20/2022 Exercise Vital Sign Answer Date Recorde d [...] place to sleep or slept in a prison (including now)? No 04/11/2021 CAGE ASSESSMENT Answer Date Recorded Due to the following: Medical status 01/11/2023 Maximum number of drinks you had on a given occasion in the last month? 5 or more drinks 01/11/2023 How many alcoholic Beverages do you typically drink in a week? 8 - 14 per week 01/11/2023 Have you ever felt you shoul d CUT down on your drinking? 0 01/11/2023 Have you been ANNOYED by peo ple criticizing your drinking? 0 01/11/2023 Have you felt GUILTY about your drinking? 1 01/11/2023 Have you had a drink first t [place] in the morning (EYE-ANIMAL KEEPER) to steady your nerves or to get rid of a hangover? 0 01/11/2023 CAGE Questionnaire Score 1 023 Sex and Gender Information Value Date Recorded Sex Assigned at Male 12/24/2023 9:18 AM EDT Legal Sex Male 7:38 PM EDT Gender Identity Male 12/24/2023 9:18 AM EDT Sexual Orientation Not on file COVID-19 Exposure Response Date Recorded In the last 10 days, have yo u been in contact with someone who was confirmed or suspected to have Coronavirus/COVID-19? No / Unsure 12/20/2022 9:17 AM EDT documented as of this encounter Functional Status * Are you deaf or do you have serious difficulty hearing? Answer Date of Assessment Author No 12/05/2022 11:43 AM EDT Diane Greenfield RN * Are you blind or do you have serious difficulty seeing, even when wearing glasses? Answer Date of Assessment Author No 12/05/2022 11:43 AM EDT Diane Greenfield RN * Do you have serious difficulty walking or climbing stairs? Answer Date of Assessment Author Yes 12/05/2022 11:43 AM EDT Diane Greenfield RN * Do you have serious difficulty dressing or bathing? Answer Date of Assessment Author No 12/05/2022 11:43 AM CATHERINET Diane Greenfield RN * Because of a physical, mental, or emotional condition, do you have serious difficulty doing errandsalone such as visiting the doctor? Answer Date of Assessment Author No 12/05/2022 11:43 AM EDT Diane Greenfield RN * Calculated C-SSRS Risk Score (Lifetime/Recent) Answer Date of Assessment Author No Risk Indicated 01/17/2023 8:00 PM EDT Pepe Figueroa RN * Question Answer Date of Assessment Author 1. Wish to be (Past 1 Month) No 023 8:00 PM EDT Sebastian Figueroa RN 2. Non-Specific Active Suici juan Thoughts (Past 1 Month) No 01/17/2023 8:00 PM EDT Sebastian Figueroa RN 6. Suicidal Behavior (Lifetime) No 8:00 PM EDT Sebastian Figueroa RN documented as of this encounter Mental Status * Because of a physical, mental, or emotional condition, do you have serious difficulty concentrating, remembering, or making decisions? (5 years old or older) Answer Entry Date Author No 12/05/2022 11:43 AM EDT Diane Greenfield RN documented in this encounter Plan of Treatment Upcoming Encounters Date Type Department Care Team (Late st Contact Info) Description 09/07/2025 2:00 PM EST Office Visit [facility] [place] [address] [place] [address] Karen Harkins MD [address] [place] [phone] documented as of this encounter Procedures Procedure Name Priority Date/Time Associated Diagnosis Comments MULTI DRUG RESISTANCE TEST Routine 01/14/2023 12:00 PM EDT Encounter for general adult medical examination without abnormal findings documented in this encounter Results * Multi Drug Resistance Test (01/14/2023 12:00 PM EDT) Culture No growth at day 2 01/16/2023 10:40 AM EDT [facility] Swab (Nares and Briana Rectal) 01/14/2023 12:00 PM EDT 01/14/2023 3:35 PM EDT us Gopi Walker MD LAB MICROBIOLOGY - GENERAL ORDERABLES Final Result Performing Organization Address City/State/[facility] Co de Phone Number HEALTHCARE LAB [address] [place] [address] documented in this encounter Visit Diagnoses Diagnosis Encounter for general adult medical examination without abnormal findings documented in this encounter Additional Health Concerns Infection Onset Date Last Indicated Resolved Time COVID-19 Rule-Out 06/30/2023 06/30/2023 06/30/2023 9:02 PM EDT COVID-19 Rule-Out 12/31/2023 12/31/2023 12/31/2023 12:10 PM EDT Assessment Noted Time PHQ-9 Depression Total Score: 13 021 3:13 PM EDT A fall risk assessment has been complete d for the patient 03/20/2022 8:46 AM EDT A Body Mass Index follow-up plan has been documented for the patient 12/20/2022 10:31 AM EDT documented as of this encounter Care Teams Jigger Machine Operator Relationship Specialty Start Date End Date Yue Vick MD [address] [address] PCP - General 05/02/21 Ana Perea RN EMERGENCY SERVICES None Registered Nurse Emergency Medicine 06/30/23 06/30/23 [place] [address] [employer] 07/02/23 08/04/23 [place] [address] Hunting Sales Associate 12/25/23 01/24/24 documented as of this encounter
--- OUTSIDE RECORDS SUMMARY | 2025-07-29 03:16 | XMS_ITS | Patient Health Record ---
Author Organization [facility] Address [address] [place] [address] Care Team Providers Care Refuse Driver Name Role Phone Chetan Juares II Unavailable Kaleb Blanton MD Unavailable Unavailable Allergies No Known Allergies Reason For Referral No Information Medications Medication SIG (Take, Route, Frequency, Duration) Notes Start Date End Date Status acetaminophen-oxycodo ne 325 mg-7.5 mg 1 tab(s) orally 2 times a day; Duration: 28 days SEPTEMBER 2023 RX, DO NOT FILL SOONER THAN 28 DAYS, (OK TO FILL EARLY, ONLY IF CLOSED) Active metoprolol 100 mg 1 tab(s) orally once a day; Duration: 30 day(s) Active potassium chloride 20 mEq/100 mL as directed intravenously once; Duration: 3 dose(s) 09/26/2023 Active digoxin 125 mcg (0.125 mg) 1 tab(s) orally once a day; Duration: 30 day(s) 09/26/2023 Active Acetaminophen-Oxycodo ne Hydrochloride 325 mg-7.5 mg 1 tab(s) orally 2 times a day; Duration: 28 days AUGUST 2023 RX, DO NOT FILL SOONER THAN 28 DAYS, (OK TO FILL EARLY, ONLY IF CLOSED) Active finasteride 5 mg 1 tab(s) orally once a day; Duration: 30 day(s) 09/26/2023 Active citalopram 20 mg 1 tab(s) orally once a day; Duration: 30 day(s) Active Seroquel 25 mg 1 tab(s) orally 3 times a day; Duration: 30 day(s) Active tamsulosin 0.4 mg 1 cap(s) orally once a day; Duration: 30 day(s) Active mirtazapine 15 mg 1 tab(s) orally once a day (at bedtime); Duration: 30 day(s) Active Entresto 24 mg-26 mg 1 tab(s) orally 2 times a day Active Problems Problem Type SNOMED Code ICD Code Onset Dates Problem Status W/U Status Risk Notes Problem Shoulder joint pain (555733642) Pain in left shoulder (M25.512) Active confirmed Problem Pain of left knee joint (finding) (127276918214559 ) Pain in left knee (M25.562) Active confirmed Problem Pain in limb (40622163) Pain in left upper arm (M79.622) Active confirmed Problem Lumbar spondylosis (895812691) lumbar spondylosis (M47.816) Active confirmed Plan Of Treatment No Information Insurance Providers Payer Name Payer Address Payer Phone Subscriber Number Group Number Insured Name Patient Relationship to Insured Coverage Start Date Coverage End Date [employer] HMO [id number] [address] [address] [place] [address] [id number] Alirio Obrien Self - patient is the insured Medical (General) History Medical History History ICD Code High blood pressure diagnosed 2020, vannesa ged by Blayne MELGAR diagnosed 2021, managed by Surgical History Surgery Date(Month/Year) Back Fusion L3-[id number] BGO 2020 Hospitalization History Reason Date(Month/Year) [facility] admitted 09/2023
--- OUTSIDE RECORDS SUMMARY | 2025-07-29 03:17 | XMS_ITS | Encounter Summary ---
Author Organization [facility] Address [address] [place] [address] Care Team Providers Care Blow Off Worker Name Role Phone Yue Vick MD Primary Care Provider [phone] Pettry, Summer Unavailable Unavailable Pettry, Summer Unavailable Unavailable Shoot, Ana Mathews RN Unavailable Unavailable Pettry, Summer Unavailable Unavailable Pettry, Summer Unavailable Unavailable Reason for Visit * Reason Comments Med Refill Encounter Details Date Type Department Care Team (Late st Contact Info) Description 11/01/2021 Refill [facility] [address] [facility], [address] [place] [phone] Glenna Winston MD [address] [facility] [address] [place] [address] Social History Tobacco Use Types [...] place to sleep or slept in a retirement (including now)? No 04/11/2021 Sex and Gender Information Value Date Recorded Sex Assigned at Male 12/24/2023 9:18 AM EDT Legal Sex Male 7:38 PM EDT Gender Identity Male 12/24/2023 9:18 AM EDT Sexual Orientation Not on file documented as of this encounter Miscellaneous Notes * Telephone Encounter - Miladys Desai, PharmD - 11/02/2021 12:56 PM EST Refill request does not meet protocol. Sending to clinic for review. Additional info: Last prescribed by Dr. Glenna Winston documented in this encounter Plan of Treatment Upcoming Encounters Date Type Department Care Team (Late st Contact Info) Description 09/07/2025 2:00 PM EST Office Visit [facility] [place] [facility] [address] [facility] [place] [address] Karen Harkins MD [address] [place] [address] documented as of this encounter Visit Diagnoses [...] has been complete d for the patient 05/29/2021 12:39 PM EDT documented as of this encounter Care Teams Blow Off Worker Relationship Specialty Start Date [place] [address] PCP - General 05/02/21 Summer Falk [employer] 03/16/22 04/17/22 [place] [id number] [employer] Navigator 10/02/22 11/01/22 Ana Perea RN EMERGENCY SERVICES None Registered Nurse Emergency Medicine 06/30/23 06/30/23 [place] [id number] [employer] Navigator 07/02/23 08/04/23 [place] [address] Seafood Farmer 12/25/23 01/24/24 documented as of this encounter
--- OUTSIDE RECORDS SUMMARY | 2025-07-29 03:17 | XMS_ITS ---
Author Organization [facility] Address [address] [place] [address] Care Team Providers Care Self Sealing Fuel Tank Repairer Name Role Phone Yue Vick MD Primary Care Provider [phone] Active Problems * This document contains information received from the source organization and may not represent a complete record from that organization. Problem Noted Date Diagnosed Date Acute blood loss anemia 01/07/2024 Atrial fibrillation, unspecified type 01/04/2024 Shoulder joint pain 11/25/2023 Failed back syndrome 11/25/2023 Cervical spondylosis without myelopathy 11/25/19 24 Pain in limb 11/25/2023 Sacrococcygeal disorders, not elsewhere classifi ed 11/25/2023 PAF (paroxysmal atrial fibrillation) 11/12/2023 Lumbar spondylosis 07/22/2023 Alcoholic intoxication without complication 11/2022 Aortic root dilatation 12/20/2022 Alcohol use disorder, severe, dependence 022 Heart failure 05/14/2022 Chronic obstructive pulmonary disease, unspecifi ed 05/14/2022 Elevated liver enzymes 03/24/2022 Obesity (BMI 30-39.9) 03/24/2022 Apnea 01/01/2022 Preop cardiovascular exam 05/29/2021 Difficulty walking 04/11/2021 Dizziness 04/11/2021 Impaired cognition 04/11/2021 Impairment of balance 04/11/2021 Speech disturbance 04/11/2021 Substance abuse 04/11/2021 Assessment & Plan (04/17/2021 8:14 AM EDT): Reminded patient that we are available to help with abstinence from alcohol and other substances when he is ready. Dysphagia, oropharyngeal 11/22/2020 Overview (05/14/2022): -per chart review, patient has history of dysphagia and aspiration. Has needed multiple PEG tubes placed. Currently no PEG tube in place -patient last saw speech as an outpatient in February 2022, who recommended mechanical soft diet -will continue mechanical soft diet. -speech consulted for additional recs At risk for venous thromboembolism (VTE) 021 Overview (04/11/2021): Problem added by Discern Expert Rule: [id number]_3 Status post tracheostomy 10/11/2020 Thrombocytopenia 09/30/2020 Localized swelling of right lower extremity 09/10 Intoxication by drug, with delirium 09/28/2020 Soft tissue lesion of shoulder region 09/06/2020 Hip pain 09/06/2020 Anxiety 01/12/2020 Hypertension 01/12/2020 Restless leg syndrome 01/12/2020 Mood and affect disturbance 01/12/2020 Paroxysmal atrial fibrillation 11/16/2019 Assessment & Plan (04/17/2021 8:16 AM EDT): Continue Eliquis and metoprolol. Reminded patient of the importance of taking these regularly. KATE (obstructive sleep apnea) 11/16/2019 Stress fracture of lumbar vertebra with routine healing 10/07/2019 Lumbar facet joint pain 09/18/2019 Assessment & Plan (04/17/2021 8:12 AM EDT): Recommend taking advantage of referral that were offered, but patient declines to follow up with [facility]. Continue medications as prescribed. Enlarged prostate 08/14/2019 Recurrent pancreatitis 12/24/2018 Pancytopenia 06/25/2018 GERD (gastroesophageal reflux disease) 8 Basal cell carcinoma of skin 10/16/2017 Lumbosacral neuritis 10/16/2017 Prostate cancer 05/01/2017 Pancreatic cyst 04/26/2017 Alcoholic fatty liver 04/17/2017 Peripheral neuropathy 03/15/2017 Elevated PSA 12/06/2016 BPH with obstruction/lower urinary tract symptom s 12/05/2016 Hypokalemia 10/23/2016 Myofascial pain syndrome 09/07/2013 Spondylosis of lumbosacral r egion without myelopathy or radiculopathy 02/09/2013 Assessment & Plan (04/17/2021 8:13 AM EDT): Encouraged physical therapy as recommended by [facility] but patient declines saying he knows how to do his exercises at home and he plans to do that. Other chronic pain 11/28/2012 Alcohol abuse Current Treatment and Therapy Plans No current plan information found. Past Treatment and Therapy Plans No past plan information found. Lifetime Dose Tracking * Chemical Lifetime Dose Automatic Entry Manual Entr y Fluoro Time 21.66 minutes 21.66 minutes 0 minutes Air Kerma 89.96 mGy 89.96 mGy 0 mGy Resolved Problems Problem Noted Date Diagnosed Date Resolved Date Physical debility 01/15/2024 05/30/2025 Gastrointestinal hemorrhage with melena 01/04/2024 01/09/2024 Pain in left knee 11/25/2023 05/30/2025 Atrial fibrillation with RVR 07/08/2023 10/13/2023 Atrial fibrillation with rap id ventricular response 01/11/2023 01/09/2024 Hypernatremia 01/11/2023 10/13/2023 Alcoholic intoxication without complication 11/26/2022 12/05/2022 Other acidosis 07/30/2022 10/13/2023 Alcoholic ketoacidosis 07/24/202210/13 Acute kidney failure, unspecified 05/21/2022 05/30/2025 Urinary tract infection, site not specified 05/21/2022 05/30/2025 Rhabdomyolysis 05/14/2022 10/13/2023 Overview (05/14/2022): -patient presents to ED after being found down by his neighbor for 2 days after a fall. -CK elevated to 3527 -status post 2 L of IV fluids in the ED -patient also started on sodium bicarb 150 mEq and dextrose 5% at 75 mL/hour for high anion gap metabolic acidosis. PLAN: -Admit to progressive with telemetry under Dr. Thapa -Stopped sodium bicarb mIVF and started NS at 130ml/hr -Trend CK q4hr -Monitor strict I/Os -Fluid boluses as needed Hematuria 05/14/2022 10/13/2023 Overview (05/14/2022): -UA positive for ketones, nitrites, blood. Microscopy positive for RBC, WBC, squamous cells, and bacteria -Patient denies any symptoms of dysuria or previous episodes of hematuria -CTA abdomen / pelvis showed No evidence of acute traumatic injury involving the spleen, kidneys, adrenal glands or pancreas. There is mild bilateral symmetric perinephric stranding in association to moderate renal cortical loss. No renal collecting system dilatation. Prostate gland enlargement. Urinary bladder is minimally distended but otherwise appears to be intact. -Chart review mentions potential dx of prostate cancer, however unclear where dx from and if patient received any treatment PLAN: -Continue to monitor UOP -Consider additional imaging once more clinically stable -Hold Eliquis in setting of hematuria. WINSOME (acute kidney injury) 05/14/2022 Overview (05/14/2022): -Creatinine on admission 2.22 -Suspect secondary to rhabdomyolysis -Urine Na and Cr collected -Continue fluid resuscitation for treatment of rhabdomyolysis -Trend creatinine daily Bacteria in urine 05/14/2022 10/13/2023 Overview (05/14/2022): -UA positive for ketones, nitrites, blood. Microscopy positive for RBC, WBC, squamous cells, and bacteria -Patient denies any symptoms of dysuria. -Presence of squamous cells on UA suggest potential contaminated sample -Urine culture pending -Will hold on starting abx until culture results Shortness of breath 01/01/2022 05/30/20 25 Dysphonia 11/22/2020 05/30/[address] 11/15/20202020 Uses feeding tube 11/15/2020 04/17/2021 Alcohol withdrawal 10/10/2020 Acute respiratory failure with hypoxia 10/03/2020 12/06/2023 Nausea 01/27/2019 10/13/2023 Hypercalcemia 08/08/2018 10/13/2023 Ascites 07/27/2018 10/13/2023 Insomnia 10/16/2017 05/30/2025 Cholelithiasis 07/17/2017 10/13/2023 Paresthesia 10/23/2016 05/30/2025 High anion gap metabolic acidosis 10/13/2023 Fall 05/30/2025
--- OUTSIDE RECORDS SUMMARY | 2025-07-29 03:17 | XMS_ITS | Encounter Summary ---
Author Organization [facility] Address [address] [id number] Care Team Providers Care Anger Control Counselor Name Role Phone Yeu Vick MD Primary Care Provider Pettry, Summer Unavailable Unavailable ShootAna RN Unavailable Unavailable Pettry, Summer Unavailable Unavailable Pettry, Summer Unavailable Unavailable Encounter Details Date Type Department Care Team (Late st Contact Info) Description 07/16/2022 Community Orders Community Practice [address] [place] [address] Kaleb Blanton MD [address] [place] [address] Essential hypertension, malignant (Primary Dx); PAF (paroxysmal atrial fibrillation) (CMS/HCC); Jose catheter in place; Uses feeding tube Social History Tobacco Use Types Packs/Day Years Used Date Smoking Tobacco: Some Days Cigarettes 0.5 20 Started: 2019 Smokeless Tobacco: Never Alcohol Use Standard Drinks/Week Comments Yes 0 (1 standard drink = 0.6 oz pure alcohol) Last drink 03/18 (hx drinking fifth vodka daily) PHQ-2 Answer [...] on file documented as of this encounter Plan of Treatment Upcoming Encounters Date Type Department Care Team (Late st Contact Info) Description 09/07/2025 2:00 PM EST Office Visit [facility] [place] [address] [facility]. [address] [place] [address] Karen Harkins MD [address] [place] [address] documented as of this encounter Visit Diagnoses Diagnosis Essential hypertension, malignant- Primary PAF (paroxysmal atrial fibrillation) Atrial fibrillation Jose catheter in place Other postprocedural status Uses feeding tube documented in this encounter Additional Health Concerns Infection Onset Date Last Indicated Resolved Time COVID-19 Rule-Out 07/24/2022 07/24/2022 07/24/2022 9:41 AM [...] for the patient 03/20/2022 8:46 AM EDT documented as of this encounter Care Teams Anger Control Counselor Relationship Specialty Start Date [place] [address] PCP - General 05/02/21 [place] [address] [employer] Navigator 10/02/22 11/01/22 Ana Perea RN EMERGENCY SERVICES None Registered Nurse Emergency Medicine 06/30/23 06/30/23 [place] [address] [employer] Navigator 07/02/23 08/04/23 [place] [address] Lab Specialist 12/25/23 01/24/24 documented as of this encounter
--- OUTSIDE RECORDS SUMMARY | 2025-07-29 03:17 | XMS_ITS | Encounter Summary ---
Author Organization [facility] Address [address] [place] [address] Care Team Providers Care Protection Consultant Name Role Phone Yue Vick MD Primary Care Provider [phone] Pettry, Summer Unavailable Unavailable Pettry, Summer Unavailable Unavailable Brit, Ana Mathews RN Unavailable Unavailable Pettry, Summer Unavailable Unavailable Pettry, Summer Unavailable Unavailable Reason for Visit * Reason Comments Med Refill Encounter Details Date Type Department Care Team (Late st Contact Info) Description 10/23/2021 Refill [facility] [place] [address] [facility], [address] [place] [address] Ligia Angel MD [address] [facility] [address] [place] [address] Social History Tobacco Use Types Packs/Day Years [...] place to sleep or slept in a penitentiary (including now)? No 04/11/2021 Sex and Gender Information Value Date Recorded Sex Assigned at Male 12/24/2023 9:18 AM EDT Legal Sex Male 7:38 PM EDT Gender Identity Male 12/24/2023 9:18 AM EDT Sexual Orientation Not on file documented as of this encounter Miscellaneous Notes * Telephone Encounter - Mahamed Zurita - 10/26/2021 2:54 PM EST Refill request does not meet protocol. Sending to clinic for review. Additional info: Please review: PCP listed in [facility] is not on approved provider list. Has not been prescribed by Dr Angel according to records documented in this encounter Plan of Treatment Upcoming Encounters Date Type Department Care Team (Late st Contact Info) Description 09/07/2025 2:00 PM EST Office Visit [facility] [place] [address] [facility]. [address] [place] [address] Karen Harkins MD [address] [place] [phone] documented as of this encounter Visit Diagnoses [...] documented as of this encounter Care Teams Protection Consultant Relationship Specialty Start Date [place] [address] PCP - General 05/02/21 Summer Falk [employer] 03/16/22 04/17/22 [place] [address] [employer] Navigator 10/02/22 11/01/22 Ana Perea RN EMERGENCY SERVICES None Registered Nurse Emergency Medicine 06/30/23 06/30/23 [place] [address] [employer] Navigator 07/02/23 08/04/23 [place] [address] Stained Glass Artist 12/25/23 01/24/24 documented as of this encounter
--- OUTSIDE RECORDS SUMMARY | 2025-07-29 03:17 | XMS_ITS | Encounter Summary ---
Author Organization [facility] Address [address] [place] [address] Care Team Providers Care Television Servicer Name Role Phone Yue Vick MD Primary Care Provider [phone] Pettry, Summer Unavailable Unavailable Pettry, Summer Unavailable Unavailable Brit, Ana Mathews RN Unavailable Unavailable Pettry, Summer Unavailable Unavailable Pettry, Summer Unavailable Unavailable Reason for Visit * Reason Comments Med Refill Encounter Details Date Type Department Care Team (Late st Contact Info) Description 11/08/2021 Refill [facility] Community Medicine [address] [facility], [address] [place] [address] Ligia Angel MD [address] [facility] [address] [place] [address] Social History Tobacco Use Types [...] in a prison (including now)? No 04/11/2021 Sex and Gender [...] have Coronavirus / COVID-19? No / Unsure 11/07/2021 10:42 AM EST documented as of this encounter Miscellaneous Notes * Telephone Encounter - Miladys Desai, LisaD - 11/09/2021 7:50 AM EST Refill request does not meet protocol. Sending to clinic for review. Additional info: Last seen by Dr. Camp in April 2021, but assigned PCP is not on approved provider protocol list. documented in this encounter Plan of Treatment Upcoming Encounters Date Type Department Care Team (Late st Contact Info) Description 09/07/2025 2:00 PM EST Office Visit [facility] [place] [address] [place] [address] Karen Harkins MD [address] [place] [phone] documented as of this encounter Visit Diagnoses [...] documented as of this encounter Care Teams Television Servicer Relationship Specialty Start Date End [place] [address] PCP - General 05/02/21 Summer Falk [employer] 03/16/22 04/17/22 [place] [address] [employer] Navigator 10/02/22 11/01/22 Ana Perea RN EMERGENCY SERVICES None Registered Nurse Emergency Medicine 06/30/23 06/30/23 [place] [address] [employer] Navigator 07/02/23 08/04/23 [place] [address] Business Specialist 12/25/23 01/24/24 documented as of this encounter
--- OUTSIDE RECORDS SUMMARY | 2025-07-29 03:17 | XMS_ITS | Encounter Summary ---
Author Organization [facility] Address [address] [id number] Care Team Providers Care Bibliographic Services Specialist Name Role Phone Yue Vick MD Primary Care Provider [phone] Pettry, Summer Unavailable Unavailable ShootAna RN Unavailable Unavailable Pettry, Summer Unavailable Unavailable Pettry, Summer Unavailable Unavailable Encounter Details Date Type Department Care Team (Late st Contact Info) Description 08/14/2022 Community [facility] Community Practice [address] [place] [address] Kaleb Blanton MD [address] [place] [address] Daytime somnolence (Primary Dx); Prostate cancer (CMS/HCC) Social History Tobacco Use Types Packs/Day Years [...] place to sleep or slept in a chcf (including now)? No 04/11/2021 Sex and Gender [...] suspected to have Coronavirus/COVID-19? No / Unsure 07/24/2022 8:18 AM EST documented as of this encounter Plan of Treatment Upcoming Encounters Date Type Department Care Team (Late st Contact Info) Description 09/07/2025 2:00 PM EST Office Visit [facility] [place] [address] [facility]. [address] [place] [address] Karen Harkins MD [address] [place] [phone] documented as of this encounter Visit Diagnoses Diagnosis Daytime somnolence- Primary Prostate cancer (CMS/HCC) Malignant neoplasm of prostate documented in this encounter Additional Health Concerns Infection Onset Date Last Indicated Resolved Time Respiratory Rule-Out 01/11/2023 01/11/2023 023 4:15 PM [...] documented as of this encounter Care Teams Bibliographic Services Specialist Relationship Specialty Start Date [place] [address] PCP - General 05/02/21 [place] [address] [employer] Navigator 10/02/22 11/01/22 Ana Perea RN EMERGENCY SERVICES None Registered Nurse Emergency Medicine 06/30/23 06/30/23 [place] [address] [employer] Navigator 07/02/23 08/04/23 [place] [address] Criminal Legal Assistant 12/25/23 01/24/24 documented as of this encounter
--- OUTSIDE RECORDS SUMMARY | 2025-07-29 03:17 | XMS_ITS | Encounter Summary ---
Author Organization [facility] Address [address] [place] [address] Care Team Providers Care Postal Carrier Name Role Phone Yue Vick MD Primary Care Provider [phone] Pettry, Summer Unavailable Unavailable Pettry, Summer Unavailable Unavailable Brit, Ana Mathews RN Unavailable Unavailable Pettry, Summer Unavailable Unavailable Pettry, Summer Unavailable Unavailable Reason for Visit * Reason Comments Med Refill Encounter Details Date Type Department Care Team (Late st Contact Info) Description 01/31/2022 Refill [facility] Community Medicine [address] [facility], [address] [place] [address] Ligia Angel MD [address] [facility] [address] [place] [address] Social History Tobacco Use Types [...] place to sleep or slept in a alf (including now)? No 04/11/2021 Sex and Gender [...] suspected to have Coronavirus/COVID-19? No / Unsure 01/01/2022 11:13 AM EDT documented as of this encounter Miscellaneous Notes * Telephone Encounter - Chela Camp MD - 02/02/2022 12:19 PM EDT Mr. Obrien is no longer a patient of our clinic. Thanks. documented in this encounter Plan of Treatment Upcoming Encounters Date Type Department Care Team (Late st Contact Info) Description 09/07/2025 2:00 PM EST Office Visit [facility] [place] [address] [facility]. [address] [place] [address] Karen Harkins MD [address] [place] [address] documented as of this encounter Visit Diagnoses [...] has been complete d for the patient 01/01/2022 11:23 AM EDT documented as of this encounter Care Teams Postal Carrier Relationship Specialty Start Date End [place] [address] PCP - General 05/02/21 Summer Falk [employer] Navigator 03/16/22 04/17/22 [place] [address] [employer] Navigator 10/02/22 11/01/22 Ana Perea RN EMERGENCY SERVICES None Registered Nurse Emergency Medicine 06/30/23 06/30/23 [place] [address] [employer] Navigator 07/02/23 08/04/23 [place] [address] Application Integration Engineer 12/25/23 01/24/24 documented as of this encounter
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
--- OUTSIDE RECORDS SUMMARY | 2025-07-29 03:17 | XMS_ITS | Clinical Summary ---
Author Organization [facility] Address [address] [place] [id number] Care Team Providers Care Production Support Manager Name Role Phone Vic Eddy MD Primary Care Provider [phone] Allergies Active Allergy Reactions Criticality Noted Date Comments Erythromycin Other (See Comments) 08/24/2024 Penicillins Other (See Comments) 05/04/2024 When he was 17 yrs old Tetracyclines & Related Other (See Comments) Social History Tobacco Use Types Packs/Day Years Used Date Smoking Tobacco: Every Day Cigarettes Smokeless Tobacco: Never Tobacco Cessation:Ready to Q uit: Not Asked; Counseling Given: Not Answered Alcohol Use Standard Drinks/Week Comments Not Currently 0 (1 standard drink = 0.6 oz pur e alcohol) Sex and Gender Information Value Date Recorded Sex Assigned at Not on file Legal Sex Male 3:25 PM EST Gender Identity Not on file Sexual Orientation Not on file Last Filed Vital Signs Vital Sign Reading Time Taken Comments Blood Pressure 115/68 08/24/2024 6:05 PM EST Pulse 82 08/24/2024 6:05 PM EST Temperature 36.7 C (98.1 F) 08/24/2024 3:33 PM EST Respiratory Rate 20 08/24/2024 3:33 PM EST Oxygen Saturation 100% 08/24/2024 5:13 PM EST Inhaled Oxygen Concentration - - Weight - - Height - - Body Mass Index - - Plan of Treatment Health Maintenance Due Date Last Done Comments Hepatitis C Screening 1950 Pneumococcal 50+ (1 of 2 - PCV) 1971 Colonoscopy 1997 PSA YEARLY 2002 Shingrix (#1) 2002 DTap,Tdap,and Td (2 - Td or Tdap) 12/03/2023 12/02/2013 Influenza Vaccine (#1) 2025 RSV Vaccine (60+ or ) (1 - 1-dose 75+ series) 2027 Abdominal Aortic Aneurysm Screening Completed 10/14/2024, 10/14/2024 HPV Aged Out No longer eligi ble based on patient's age to complete this topic Meningococcal conjugate alize nt 4 (MCV4) Aged Out No longer eligible b ased on patient's age to complete this topic RSV Immunization (<20 months) Aged Out No longer eligible based on patient's age to complete this topic Insurance [employer] GOLD CHOICE/PLUS HMO ([facility]) Member Subscriber Plan / Payer ( fective 2024-Present) Name:Alirio Obrien Relation to Subscriber:Self Name:Alirio Obrien Payer ID:[id number] ([facility]) Type:Not on file Address: [address] [id number] MEDICAID [place] on file Care Teams Production Support Manager Relationship Specialty Start Date End Date Vic Eddy MD PCP - General Internal Medicine 08/24/24
--- NOTE | 2025-07-29 03:21 | HMH.EDGENADL ---
Discharge Plan Disposition Patient Disposition: Admitted Condition: Fair Clinical Impressions Clinical Impression: Nausea & vomiting, Adrenal mass, Abdominal pain Discharge ED Provider: Kristin Figueroa Adult HPI General Chief complaint: Abdominal Pain Stated complaint: Abd Pain Time Seen by Provider: 07/29/25 03:09 History of Present Illness HPI narrative: 75-year-old male presents to the ER for mid abdominal pain with nausea and vomiting. Patient reports 14 hours prior to arrival he started having abdominal pain and demonstrates to his epigastric region. He reports it feels similar to pancreatitis which he reports a history of in the past. He states he used to be an alcoholic but has not drank in the last 18 months. He states he had a good lunch with fresh food and does not believe the food caused his symptoms. He states since his symptoms started he has not been able to tolerate anything by mouth. He reports nonbloody, nonbilious emesis. He denies diarrhea. Denies dysuria or hematuria. Denies chest pain or difficulty breathing. Patient has been evaluated multiple times in the last month including a recent evaluation for abdominal pain where it was believed she was in opioid withdrawal. Patient reports he has attempted to take his Percocet and gabapentin but these immediately came back up. Denies fevers or chills. No headache or dizziness. No other associated symptoms Related Data Home Medications ?Medication ?Instructions ?Recorded ?Confirmed apixaban 5 mg tablet (Eliquis) 5 mg PO BID 07/06/25 07/23/25 escitalopram oxalate 10 mg tablet 10 mg PO DAILY 07/06/25 07/23/25 gabapentin 800 mg tablet 800 mg PO TID 07/06/25 07/23/25 hydroxyzine HCl 25 mg tablet 25 mg PO TID PRN 07/06/25 07/23/25 lisinopril 5 mg tablet 5 mg PO DAILY 07/06/25 07/23/25 methocarbamol 750 mg tablet 750 mg PO TID 07/06/25 07/23/25 mirtazapine 15 mg tablet 15 mg PO DAILY 07/06/25 07/23/25 terazosin 10 mg capsule 10 mg PO DAILY 07/06/25 07/23/25 thiamine mononitrate (vit B1) 100 100 mg PO DAILY 07/06/25 07/23/25 mg tablet (Vitamin B-1 (mononitrate)) potassium chloride 20 mEq 20 meq PO TID 07/23/25 07/23/25 tablet,extended release Previous Rx's ?Medication ?Instructions ?Recorded promethazine 12.5 mg tablet 12.5 mg PO TID PRN nausea and 07/06/25 vomiting 3 days #9 tabs metaxalone 800 mg tablet 800 mg PO TID PRN muscle pain #90 07/23/25 tabs metoprolol tartrate 25 mg tablet 25 mg PO BID #60 tabs 07/23/25 oxycodone-acetaminophen 7.5 mg-325 1 tab PO Q8H PRN pain #45 tabs 07/23/25 mg tablet ropinirole 0.5 mg tablet 0.5 mg PO DAILY #30 tabs 07/23/25 Allergies Allergy/AdvReac Type Severity Reaction Status Date / Time penicillin G Allergy Mild Rash Verified 07/23/25 13:36 Penicillins Allergy Mild Rash Verified 07/23/25 13:36 erythromycin base AdvReac Mild Unknown Verified 07/23/25 13:36 allergy reaction tetracycline AdvReac Mild Vomiting Verified 07/23/25 13:36 PFS PFS Disclaimer: The information contained in this section may have been updated after the patient was seen, as this information can be updated by other users. Medical History Constipation Elevated bilirubin HTN (hypertension), malignant Surgical History History of cholecystectomy History of knee surgery Hx of decompression of ulnar nerve Social History (Updated 07/23/25 @ 13:45 by Chloe Heart CMA) Smoking Status: Current every day smoker tobacco type: cigarettes smoking status start date: 55 yo alcohol intake: former year quit: 2023 substance use type: denies use current occupational status: retired Travel in the last 8 weeks?: None Do you have any abdominal pain?: Yes Other Medical History Have you received the Pneumonia Vaccine: No ROS Obtained: Yes Systems reviewed as appropriate & no additional complaints except as documented Per HPI Physical Exam General General appearance: alert and in no apparent distress Head Head exam: atraumatic and normocephalic Eye Eye exam: Present PERRL and EOMI ENT ENT exam: Present mucous membranes moist Neck Neck exam: Present normal inspection and full ROM Chest Chest inspection: Present symmetric chest wall rise Respiratory Respiratory exam: Present normal lung sounds bilaterally; Absent respiratory distress, wheezes or stridor Cardiovascular Cardiovascular exam: Present regular rate and normal rhythm Abdominal Exam Abdominal exam: Present soft and tenderness (Epigastric and periumbilical, large diastases present but no hernia); Absent distention, guarding or rebound Extremities Exam Extremities exam: Present full ROM and normal capillary refill; Absent edema Neurological Exam Neurological exam: Present alert and oriented X3; Absent motor sensory deficit Psychiatric Psychiatric exam: Present normal affect and normal mood Skin Skin exam: Present warm and dry Medical Decision Making Medical Records Medical records reviewed: Yes I reviewed the patient's medical records. Screening: Per USPSTF and CDC recommendations, given the prevalence of disease in our region, it is our hospital?s policy to screen for HIV and viral Hepatitis for all patients aged 18 and over and those with ongoing risk factors. MR Goldsmith: Work up from the end of June for abdominal pain and constipation was reviewed. CT at that time demonstrated mucosal thickening of the gastric antrum, cholelithiasis, stable right upper quadrant lesion from previous exam. Labs from that visit demonstrated nonactionable CBC, not acutely actionable CMP there was slight hyperbilirubinemia and mild elevation of alkaline phosphatase, normal lipase. Buck Inquiry Pt receiving controlled substance: No Vital Signs: 07/29/25 03:06 07/29/25 03:25 07/29/25 03:30 Temperature Temperature Source Pulse Rate 89 100 H 90 Pulse Rate [Right] Respiratory Rate Blood Pressure 156/106 H 145/98 H 155/76 H Blood Pressure [Right Arm] Blood Pressure Mean [Right Arm] Blood Pressure Source [Right Arm] Blood Pressure Position [Right Arm] 02 Sat by Pulse Oximetry 96 98 97 Oxygen Delivery Method 07/29/25 03:31 Temperature 98.3 F Temperature Source Oral Pulse Rate Pulse Rate [Right] 77 Respiratory Rate 18 Blood Pressure Blood Pressure [Right Arm] 155/76 H Blood Pressure Mean [Right Arm] 102 Blood Pressure Source [Right Arm] Automatic Cuff Blood Pressure Position [Right Arm] Left Lateral 02 Sat by Pulse Oximetry 96 Oxygen Delivery Method Room Air Lab Data Lab Results 07/29/25 03:19: WBC 8.5, RBC 4.88, Hgb 15.7, Hct 45.6, MCV 93.4, MCH 32.2 H, MCHC 34.4, RDW 13.0, Plt Count 114 L, MPV 11.1 H, Neut % (Auto) 82.2 H, Lymph % (Auto) 10.7, [place] % (Auto) 6.0, Eos % (Auto) 0.2, Baso % (Auto) 0.5, Neut # (Auto) 7.0, Lymph # (Auto) 0.9, [place] # (Auto) 0.5, Eos # (Auto) 0.0, Baso # (Auto) 0.0, PT 11.4, INR 1.03, Sodium 140, Potassium 4.0, Chloride 102, Carbon Dioxide 26, Anion Gap 16.0 H, BUN 13, Creatinine 0.80, Estimated Creat Clear 84, Estimated GFR 95, Est GFR ( Amer) 115, Glucose 127 H, Lactate 1.4, Calcium 9.6, Total Bilirubin 0.7, AST 32, ALT 30, Alkaline Phosphatase 119, Troponin I < 0.01, Total Protein 7.6 D, Albumin 4.4, Globulin 3.2, Albumin/Globulin Ratio 1.4, Lipase 61 07/29/25 04:15: Urine Color Yellow, Urine Appearance Clear, Urine pH 6.0, Ur Specific Mineral 1.010, Urine Protein Negative, Urine Glucose (UA) Negative, Urine Ketones 1+, Urine Blood Trace-i, Urine Nitrate Negative, Urine Bilirubin Negative, Urine Urobilinogen 0.2, Ur Leukocyte Esterase Negative, Urine RBC Occasional, Urine WBC None, Ur Squamous Epith Cells None, Urine Bacteria None 07/29/25 03:19 07/29/25 03:19 Orders (Tests/Meds): ED MEDICATIONS Discontinued Medications Generic Name Dose Route Start Last Admin Trade Name Anh PRN Reason Stop Dose Admin Hydromorphone HCl 1 mg 07/29/25 03:09 07/29/25 03:28 Hydromorphone 2mg/Ml Syringe IV 07/29/25 03:10 1 mg ONCE ONE Administration Lactated Ringer's 1,000 mls @ 999 mls/hr 07/29/25 03:09 07/29/25 04:45 Lactated Ringer's 1000 Ml Bag IV 07/29/25 04:09 Infused .Q1H1M ONE Infusion Iopamidol 80 ml 07/29/25 04:08 07/29/25 04:09 Iopamidol-370 (76%);100ml Bottle IV 07/29/25 04:09 80 ml ONCE ONE Administration Oxycodone/Acetaminophen 1 each 07/29/25 04:43 07/29/25 04:44 Oxycodone 7.5mg W/Apap 325mg Tablet PO 07/29/25 04:44 1 each ONCE ONE Administration Promethazine HCl 12.5 mg 07/29/25 03:09 07/29/25 03:29 Promethazine Hcl 25mg/Ml 1ml Vial IV 07/29/25 03:10 12.5 mg ONCE ONE Administration Sodium Chloride 25 ml 07/29/25 03:09 07/29/25 03:29 Sodium Chloride 0.9% 25ml Bag IV 07/29/25 03:10 25 ml ONCE ONE Administration Sodium Chloride 50 ml 07/29/25 04:08 07/29/25 04:09 0.9 % Sodium Chloride 50 Ml Vial IV 07/29/25 04:09 50 ml ONCE ONE Administration Sodium Chloride 10 ml 07/29/25 04:08 07/29/25 04:09 Sodium Chloride 0.9% 10ml Syr (Rad Only) IV 07/29/25 04:09 10 ml ONCE ONE Administration ORDERS Category Date Time Status CT angio abdomen pelvis Stat Cat Scan 07/29/25 03:30 Completed Complete Blood Count Auto Diff Stat Lab 07/29/25 03:19 Completed Comprehensive Metabolic Panel Stat Lab 07/29/25 03:19 Completed HIV Combo Stat Lab 07/29/25 Completed Hepatitis C Ab Qual. W/ RFX Stat Lab 07/29/25 Completed Lactic Acid Stat Lab 07/29/25 03:19 Completed Lipase Stat Lab 07/29/25 03:19 Completed Prothrombin Time INR Stat Lab 07/29/25 03:19 Completed Troponin I Q3H Lab 07/29/25 06:15 Ordered Troponin I Q3H Lab 07/29/25 09:15 Ordered Troponin I Stat Lab 07/29/25 03:19 Completed Urinalysis and Microscopic Stat Lab 07/29/25 04:15 Completed Medical Decision Narrative: In summary, this 75-year-old male with a history of chronic pain on Percocet and gabapentin, atrial fibrillation on Eliquis, hypertension, previous pancreatitis, previous alcohol use disorder presents to the emergency department today with mid/epigastric abdominal pain with nausea and vomiting for the last 12 to 14 hours. Nonbloody, nonbilious emesis, denies diarrhea, denies dysuria or hematuria. On initial evaluation patient is hemodynamically stable, afebrile, GCS 15, cardiopulmonary exam notable for atrial fibrillation, +1 bilateral lower extremity pitting edema, tenderness in the epigastric to periumbilical region with no rebound or guarding, no peritonitic findings, patient has diastases without obvious hernia. He denies any tearing sensation. Differential diagnosis includes but is not limited to viral syndrome, pancreatitis, electrolyte abnormality, dehydration, bowel obstruction, patient had an inflamed lesion in the right upper quadrant on his last CT and I considered the possibility of this causing his symptoms as well as the possibility of AAA though I have extremely low suspicion for AAA since he has no tearing sensation, no severe abdominal pain, did also consider mesenteric ischemia, UTI, among other. Based on these concerns, I ordered hematologic and serum labs, CT imaging including angiography of the abdomen pelvis, consider the possibility of atypical presentation of ACS so cardiac workup was also ordered. ECG personally interpreted demonstrates atrial fibrillation, rate 82, normal axis, normal QTc, no STEMI. Patient received Dilaudid, Phenergan, IV fluids for treatment. Labs personally reviewed demonstrate no leukocytosis or anemia, mild thrombocytopenia platelets 114 is not significantly changed from prior, PT/INR normal, CMP with mildly elevated anion gap which is nonspecific at this time, patient is already receiving IV fluids, initial troponin undetectably low less than 0.01 reassuring in the setting of nonischemic ECG, I do not believe serial troponins are indicated since patient has had more than 14 hours of symptoms. If they were cardiac in etiology he should have elevation in troponin by this time. Lipase normal at 61, UA negative for findings of infection. Reassuring as pancreatitis and UTI, respectively. CT abdomen pelvis personally interpreted demonstrates moderate stool burden, I do not appreciate acute surgical pathology, there is an adrenal lesion. See radiology read for final interpretation which comments on this lesion being rapidly enlarging since the last scan on 07/06/2025. Recommended MRI follow-up. Patient has had intractable pain despite receiving Dilaudid and home dose oxycodone. With his multiple presentations recently I have course have to consider the possibility of drug-seeking behavior, but with the growing adrenal lesion also considered this. An adrenal crisis though patient is not tachycardic or hypotensive could be causing nausea and vomiting though I would not expect the pain to be present the way it is. I discussed this case with the hospitalist including patient's multiple presentations, this growing adrenal lesion, and his intractable symptoms. He graciously accepted the patient for admission for continued adrenal workup including MRI. Patient admitted in stable condition. Critical Care Critical Care Time Critical Care Time: No
--- NOTE | 2025-07-29 03:22 | ECG_ITS ---
APPROVED REPORT Exam: Resting ECG HR:82 bpm ECG Measurements Heart Rate 82 AXES QRSd 97 QRS 13 QT 342 T 56 QTc 381 Conclusion ATRIAL FIBRILLATION LOW QRS VOLTAGE IN EXTREMITY LEADS [QRS DEFLECTION < 0.5 mV IN LIMB LEADS] PROBABLE INFERIOR MYOCARDIAL INFARCTION , OF INDETERMINATE AGE [35 ms Q WAVE IN II/aVF] No STEMI Electronically signed by : ALENA DICKSON, 07/29/2025 07:13:20
[2025-07-29 03:24] LABS: Hematocrit 45.6 % (42.0-52.0); Hemoglobin 15.7 g/dL (14.1-18.0); Immature Granulocytes % 0.4 %; Mean Corpuscular HGB Conc 34.4 g/dL (31.8-35.4); Mean Corpuscular Hemoglobin 32.2 pg (27.0-31.2); Mean Corpuscular Volume 93.4 fl (80-94); Nucleated Red Blood Cells % 0 %; Platelet Count 114 K/mm3 (142-424); Red Blood Count 4.88 M/mm3 (4.60-6.20); Red Cell Distribution Width-SD 44.8 fL; White Blood Count 8.5 K/mm3 (4.8-10.8)
[2025-07-29] MEDS: HYDROMORPHONE 2MG/ML SYRINGE 1 MG IV (03:28)
[2025-07-29] MEDS: LACTATED RINGERS 1000ML 1,000 ML 999 ML IV (03:28)
[2025-07-29] MEDS: PROMETHAZINE HCL 25MG/ML 1ML VIAL 12.5 MG IV ×2 (03:29→07:55)
[2025-07-29] MEDS: SODIUM CHLORIDE 0.9% 25ML BAG 25 ML IV ×2 (03:29→07:55)
--- NOTE | 2025-07-29 03:30 | CT_ITS ---
PROCEDURE INFORMATION: Exam: CTA Abdomen and Pelvis With Contrast Exam date and time: 07/29/2025 3:59 AM Age: 75 years old Clinical indication: Abdominal pain; Epigastric; Additional info: Epigastric abd pain, n/v TECHNIQUE: Imaging protocol: Computed tomographic angiography of the abdomen and pelvis with contrast. Exam focused on the arteries. 3D rendering (Not supervised by radiologist): MIP and/or 3D reconstructed images were created by the technologist. Radiation optimization: All CT scans at this facility use at least one of these dose optimization techniques: automated exposure control; mA and/or kV adjustment per patient size (includes targeted exams where dose is matched to clinical indication); or iterative reconstruction. Contrast material: ISOVUE; Contrast volume: 80 ml; Contrast route: INTRAVENOUS (IV); COMPARISON: CT ABDOMEN PELVIS W CON 07/06/2025 2:29 PM FINDINGS: Limitations: Motion artifact degrades image quality and limits the sensitivity of this examination. Aorta: No aortic aneurysm. No aortic dissection. Celiac and mesenteric arteries: No occlusion or significant stenosis. Renal arteries: No occlusion or significant stenosis. Right iliac arteries: No occlusion or significant stenosis. Left iliac arteries: No occlusion or significant stenosis. Liver: No mass. Gallbladder and biliary ducts: Large gallstone within atrophic and contracted gallbladder. Pancreas: Stable 1.8 cm cystic lesion in the head of the pancreas. Spleen: Unremarkable. No splenomegaly. Adrenal glands: 2.5 cm nodule arising from or immediately adjacent to the left adrenal gland. Kidneys and ureters: Unremarkable. No solid mass. No hydronephrosis. Stomach and bowel: No active gastrointestinal hemorrhage. Appendix: No evidence of appendicitis. Intraperitoneal space: Unremarkable. No free air. No significant fluid collection. Lymph nodes: Unremarkable. No enlarged lymph nodes. Urinary bladder: Unremarkable. No mass. Reproductive: The prostate measures 7 cm transverse. Bones/joints: Degenerative changes in the spine. Soft tissues: 4.5 cm fat containing left inguinal hernia. IMPRESSION: 1. No active gastrointestinal hemorrhage. 2. 2.5 cm nodule arising from or immediately adjacent to the left adrenal gland. This finding measured 2 cm on 07/06/2025. Rapid enlargement is concerning for potential neoplasm. MRI evaluation recommended. 3. 4.5 cm fat containing left inguinal hernia. 4. Enlarged prostate.
[2025-07-29 03:32] LABS: Lipase 61 U/L (23-300)
[2025-07-29 03:39] LABS: INR 1.03 (0.9-1.1); Prothrombin Time 11.4 seconds (10.1-12.5)
[2025-07-29 03:45] LABS: Albumin Level 4.4 g/dl (3.5-5.0); Chloride 102 mmol/L (98-107); Potassium 4.0 mmoL/L (3.5-5.1); Sodium 140 mmol/L (136-145)
[2025-07-29 03:47] LABS: Troponin I < 0.01 ng/ml (0.00-0.034)
[2025-07-29 03:48] LABS: Alanine Aminotransferase 30 U/L (12-78); Albumin/Globulin Ratio 1.4 (1.1-1.8); Alkaline Phosphatase 119 U/L (38-126); Anion Gap 16.0 mEq/L (5-15); Aspartate Amino Transferase 32 U/L (17-59); Bilirubin,Total 0.7 mg/dl (0.2-1.3); Blood Urea Nitrogen 13 mg/dl (9-20); Calcium 9.6 mg/dl (8.4-10.2); Carbon Dioxide 26 mmol/L (22.0-30.0); Creatinine Clearance Estimated 84 mL/min (50-200); Creatinine,Serum 0.80 mg/dl (0.66-1.25); Estimated Glomerular Filt Rate 95 ml/min (>60); GFR (African American) 115 ML/MIN (>60); Globulin 3.2 g/dL (1.3-3.2); Glucose 127 mg/dl (74-100); Total Protein,Serum 7.6 g/dl (6.3-8.2)
[2025-07-29] MEDS: 0.9 % SODIUM CHLORIDE 50 ML VIAL IV (04:09)
[2025-07-29] MEDS: IOPAMIDOL-370 (76%);100ML BOTTLE 80 ML IV (04:09)
[2025-07-29] MEDS: SODIUM CHLORIDE 0.9% 10ML SYR (RAD ONLY) 10 ML IV (04:09)
[2025-07-29 04:19] LABS: Microscopic, Urine URINE MICROSCOPIC (MICROSCOPIC)
[2025-07-29 04:22] LABS: Bilirubin,Urine Negative (Negative); Color,Urine YELLOW (Yellow); Glucose,Urine (UA) Negative (Negative); Ketones,Urine 1+ (Negative); Leukocyte Esterase,Urine Negative (Negative); PH,Urine 6.0 (5.0-8.5); Protein,Urine Negative (Negative); Specific Gravity, Urine 1.010 (1.005-1.030); Urobilinogen,Urine 0.2 EU/dl (0.2)
[2025-07-29 04:31] LABS: RBC,Urine Occasional #/hpf (0-3)
[2025-07-29 04:37] LABS: Hepatitis C Ab Qual. W/ RFX NEGATIVE (Negative)
[2025-07-29] MEDS: OXYCODONE 7.5MG W/APAP 325MG TABLET 1 EACH PO ×2 (04:44→10:34)
--- NOTE | 2025-07-29 05:30 | MR_ITS ---
FINAL REPORT CLINICAL HISTORY: Abnormal mass on adrenal gland vomiting and abdominal pain that radiates to back COMPARISON: CTA abdomen and pelvis 07/29/2025 FINDINGS: Multiplanar MR imaging of the abdomen was performed without and with contrast. Exam was obtained better characterize presumed left adrenal nodule. On T2 weighted images, there is a 2.0 cm fluid signal intensity focus corresponding to the abnormality, well seen on image 20 8 of series 11. It again remains unclear if this fluid collection arises from or simply contiguous with the left adrenal gland. As best can be determined, this is contiguous with the adrenal gland. Post infusion images demonstrate no abnormal enhancement. There is fluid surrounding the spleen. Mild edema is noted within the retroperitoneum. Etiology of fluid and edema is unclear. There is a low signal intensity focus within the lumen of the gallbladder consistent with gallstones well seen on image 25 of series 11. Tiny benign-appearing cysts are noted in both kidneys. IMPRESSION: 2 cm fluid collection adjacent to the adrenal gland favored to not arise from the gland. Edema in the left retroperitoneum of uncertain significance. Gallstones. Multiple small simple renal cyst. Recommend follow-up CT scan in 3-6 months to document stability of findings. Reviewed, Interpreted and Dictated by Lazaro Malave MD Transcribed by Kelly Cason Authenticated and [facility]
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
[2025-07-29] MEDS: HYDROMORPHONE 2MG/ML SYRINGE 0.5 MG IV ×3 (05:41→19:36)
--- NOTE | 2025-07-29 05:51 | PC.NURSE ---
report called to LJ Islas
--- NOTE | 2025-07-29 06:03 | PC.NURSE ---
Jesusita to ER to get patient and bring to the floor
--- NOTE | 2025-07-29 06:08 | PC.NURSE ---
Patient on floor
[2025-07-29] MEDS: ONDANSETRON 4MG/2ML VIAL 4 MG IV ×2 (07:30→19:35)
--- NOTE | 2025-07-29 08:01 | HMH.PHAINT1 ---
Pharmacy Intervention Comments: HOME MEDICATION LIST VERIFIED USING LIST FROM OUTPATIENT PHARMACY
[2025-07-29] MEDS: SODIUM CHLORIDE 0.9% 10ML FLUSH SYRINGE 10 ML IV (10:14)
[2025-07-29] MEDS: GADOTERIDOL INJ 20ML SYRINGE 19 ML IV (10:14)
[2025-07-29] MEDS: METHOCARBAMOL 500MG TABLET 750 MG PO ×3 (10:29→21:15)
[2025-07-29] MEDS: GABAPENTIN 800MG TABLET 800 MG PO ×3 (10:29→21:12)
[2025-07-29] MEDS: LISINOPRIL 5MG TABLET 5 MG PO (10:30)
[2025-07-29] MEDS: ESCITALOPRAM 10MG TABLET 10 MG PO (10:30)
[2025-07-29] MEDS: METOPROLOL TARTRATE 25MG TABLET 25 MG PO ×2 (10:30→21:12)
[2025-07-29] MEDS: APIXABAN 5MG TABLET 5 MG PO ×2 (10:30→21:13)
[2025-07-29] MEDS: POLYETHYLENE GLYCOL 3350 17 GM PACKET PO (10:31)
[2025-07-29] MEDS: METOCLOPRAMIDE HCL 10MG/2ML VIAL 10 MG IVP ×2 (10:51→16:37)
--- NOTE | 2025-07-29 14:35 | P.EN_ITS ---
<Statement entered by Mohan Guerra MD - 08/02/25 11:07> Agree with plan of care as outlined by the PATIENT SUPPORT REPRESENTATIVE. Mr. Obrien is a 75-year-old male who presented to the emergency department early this morning with complaints of abdominal pain, nausea, vomiting. He reported that he has been sick for approximately the past 14 hours with abdominal pain mostly epigastric. He reports he has a history of pancreatitis and that this feels similar. He does endorse previous alcohol use, but states he has not drank in 18 months. He denies dysuria, diarrhea, fever, chills, chest pain, shortness of breath. He was previously seen at the end of June in the emergency department due to opioid withdrawal and states he has been unable to take his pain medication due to his nausea. Workup in the emergency department was significant for CT showing adrenal cyst and moderate stool burden. Patient was given Dilaudid, oxycodone, Phenergan in the ED but continued to have symptoms of pain and nausea. Hospital medicine was consulted for admission, and agreed to accept the patient. Patient admitted to the floor and given Dilaudid, home oxycodone dosing, Phenergan, Zofran, Reglan for nausea and pain. Abdomen MRI obtained which showed a 2 cm fluid collection adjacent to the adrenal gland favored to not arise from the gland. Additionally showed edema in the left retroperitoneum of uncertain significance. Upon exam patient complains of abdominal pain rating 7/10 but it is nonfocal, palpation of abdomen is unremarkable, soft, nondistended. Patient does have large ventral hernia that is easily reducible. Patient has remained hemodynamically stable, nontachycardic, afebrile. CBC reveals no leukocytosis, no anemia, no electrolyte abnormalities, normal kidney function, LFTs unremarkable, negative troponin. Resumed patient's home medication, patient is doing well this afternoon. Diet ordered, will advance as tolerated. Anticipate discharge home tomorrow.
[2025-07-29] MEDS: PROMETHAZINE HCL 25MG/ML 1ML VIAL 25 MG IV (14:45)
[2025-07-29 21:07] LABS: Troponin I < 0.01 ng/ml (0.00-0.034)
[2025-07-29] MEDS: MIRTAZAPINE 15 MG TABLET PO (21:12)
[2025-07-29] MEDS: ROPINIROLE HCL 0.25 MG TABLET 0.5 MG PO (21:13)
[2025-07-29] MEDS: TERAZOSIN 5MG CAPSULE 10 MG PO (21:14)
[2025-07-30] VITALS: BP 129/83; PULSE 75; PULSE 88; RESP 16; TEMP 36.6; O2SAT 96
[2025-07-30 04:00] VITALS: BP 149/86; PULSE 73; PULSE 90; RESP 16; TEMP 36.8; O2SAT 93; BMI 28.8
[2025-07-30] MEDS: OXYCODONE 7.5MG W/APAP 325MG TABLET 1 EACH PO ×2 (04:17→10:08)
--- NOTE | 2025-07-30 04:29 | PC.NURSE ---
Pt. is alert and orientated x 4. Pt. is on room air. Pt. c/o abdominal pain, chronic back pain, nausea and vomiting. Pt. moaning about how sick he feels. Pt. was medicated for pain and nausea per NOV. After pt. took his regular scheduled night time medications he fell asleep and slept for a few hours. When pt. woke up he is c/o generalized body aches and pains. Requesting Percocet. Pt. medicated per NOV. No nausea or vomiting when he woke up. Feeling slightly better. Personal items and call nuñez in reach. Bed in low and locked position. sSafety measures in place.
[2025-07-30 05:51] LABS: Hematocrit 44.8 % (42.0-52.0); Hemoglobin 15.2 g/dL (14.1-18.0); Immature Granulocytes % 0.3 %; Mean Corpuscular HGB Conc 33.9 g/dL (31.8-35.4); Mean Corpuscular Hemoglobin 31.6 pg (27.0-31.2); Mean Corpuscular Volume 93.1 fl (80-94); Nucleated Red Blood Cells % 0 %; Platelet Count 99 K/mm3 (142-424); Red Blood Count 4.81 M/mm3 (4.60-6.20); Red Cell Distribution Width-SD 44.1 fL; White Blood Count 10.1 K/mm3 (4.8-10.8)
[2025-07-30 05:59] LABS: Anion Gap 8.0 mEq/L (5-15); Blood Urea Nitrogen 10 mg/dl (9-20); Calcium 9.4 mg/dl (8.4-10.2); Carbon Dioxide 25 mmol/L (22.0-30.0); Chloride 104 mmol/L (98-107); Creatinine Clearance Estimated 90 mL/min (50-200); Creatinine,Serum 0.70 mg/dl (0.66-1.25); Estimated Glomerular Filt Rate 111 ml/min (>60); GFR (African American) 134 ML/MIN (>60); Glucose 107 mg/dl (74-100); Potassium 4.0 mmoL/L (3.5-5.1); Sodium 133 mmol/L (136-145)
[2025-07-30 07:38] LABS: Troponin I < 0.01 ng/ml (0.00-0.034)
[2025-07-30 08:00] VITALS: BP 127/76; PULSE 111; PULSE 96; RESP 20; TEMP 36.8; O2SAT 97
[2025-07-30] MEDS: POLYETHYLENE GLYCOL 3350 17 GM PACKET PO (08:51)
[2025-07-30] MEDS: LISINOPRIL 5MG TABLET 5 MG PO (08:52)
[2025-07-30] MEDS: APIXABAN 5MG TABLET 5 MG PO (08:52)
[2025-07-30] MEDS: METHOCARBAMOL 500MG TABLET 750 MG PO (08:52)
[2025-07-30] MEDS: ESCITALOPRAM 10MG TABLET 10 MG PO (08:52)
[2025-07-30] MEDS: METOPROLOL TARTRATE 25MG TABLET 25 MG PO (08:52)
[2025-07-30] MEDS: ONDANSETRON 4MG/2ML VIAL 4 MG IV (08:55)
[2025-07-30] MEDS: GABAPENTIN 800MG TABLET 800 MG PO (08:56)
[2025-07-30] MEDS: KETOROLAC 15MG/ML VIAL 15 MG IM (09:01)
--- NOTE | 2025-07-30 10:00 | P.DS_ITS ---
<Statement entered by Mohan Guerra MD - 08/02/25 11:06> Agree with plan of care as outlined by the PLSQL DEVELOPER. General Admission date:: 07/29/25 Discharge date: 07/30/25 HPI HPI HPI: This is a 75-year-old male who has a past medical history significant for atrial fibrillation currently prescribed Eliquis, chronic pain, and hypertension who presents with a chief complaint of 10 out of 10 abdominal pain. Due to patient's symptoms, he presented to the emergency room for evaluation. While in the emergency room, EKG revealed a atrial fibrillation, QTc of 381, normal axis, and negative for STEMI. CT scan of the abdomen pelvis revealed 2.5 cm nodule arising from or intramedullary adjacent to the left adrenal gland the finding measured 2 cm on 07/06/2025 this was rapid enlargement concerning for potential malignancy, 4.5 cm fat containing left inguinal hernia, and enlarged prostate. Patient was given multiple pain medications without relief or minimization of his perceived pain. As a result hospital medicine was consulted for further management. During my evaluation of the patient, patient states his abdominal pain started earlier yesterday. He has been evaluated in the emergency room on multiple occasions for abdominal pain. He reports a skydiving accident where he has multiple's screws and plates in his back. Patient states he normally takes Percocet, methocarbamol, and gabapentin for his neuropathy and pain but this is not relieving his symptoms. He is currently denied any chest pain, lightheadedness, dizziness, fever, lightheadedness, brittle hair, brittle nails, loss of hair, feeling cold, nausea, vomiting, diarrhea, shortness of breath, or diarrhea. Additional pertinent vitals obtained including platelet count of 114, and blood glucose 127. Hospital Course Hospital Course Hospital Course: Mr. Obrien is a 75-year-old male who presented to the emergency department early yesterday morning with complaints of abdominal pain, nausea, vomiting. He reported that he has been sick for approximately the past 14 hours with abdominal pain mostly epigastric. He reports he has a history of pancreatitis and that this feels similar. He does endorse previous alcohol use, but states he has not drank in 18 months. He denies dysuria, diarrhea, fever, chills, chest pain, shortness of breath. He was previously seen at the end of June in the emergency department due to opioid withdrawal and states he has been unable to take his pain medication due to his nausea. Workup in the emergency department was significant for CT showing adrenal cyst and moderate stool burden. Patient was given Dilaudid, oxycodone, Phenergan in the ED but continued to have symptoms of pain and nausea. Hospital medicine was consulted for admission, and agreed to accept the patient. Patient admitted to the floor and given Dilaudid, home oxycodone dosing, P henergan, Zofran, Reglan for nausea and pain. Abdomen MRI obtained which showed a 2 cm fluid collection adjacent to the adrenal gland favored to not arise from the gland. Additionally showed edema in the left retroperitoneum of uncertain significance. Initial examination patient complained of abdominal pain, day of discharge patient denies pain or nausea. States he feels back to baseline. Pat ient denies abdominal pain to palpation and abdomen is soft, nondistended. Patient does have large ventral hernia that is easily reducible. 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 This should be followed by patient's PCP for further workup. Repeat MRI in 3-6 months to evaluate adrenal gland cyst recommended. Patient has remained hemodynamically stable, nontachycardic, afebrile. CBC reveals no leukocytosis, no anemia, no electrolyte abnormalities, normal kidney function, LFTs unremarkable, negative troponin. Resumed patient's home medication, patient has done well. Tolerated p.o. diet without issue. Discharge patient home with Phenergan 25 mg, half to 1 tab every 8 hours as needed for nausea. Referral to GI and PCP at discharge. He is to continue home chronic medications at discharge. Total time spent on discharge 32 minutes in counseling, documentation, chart review, and direct care with patient. Exam Data for Last 24 hours Vital signs and Labs for Last 24 Hours: Temp Pulse Resp BP Pulse Ox O2 Del Method 98.3 F 96 H 20 127/76 97 Room Air 07/30/25 08:00 07/30/25 08:00 07/30/25 08:00 07/30/25 08:00 07/30/25 08:00 07/30/25 09:00 Laboratory Results - last 24 hr 07/29/25 20:09: Troponin I < 0.01 07/30/25 05:25: WBC 10.1, RBC 4.81, Hgb 15.2, Hct 44.8, MCV 93.1, MCH 31.6 H, MCHC 33.9, RDW 12.9, Plt Count 99 L, MPV 11.9 H, Neut % (Auto) 75.2, Lymph % (Auto) 10.6, [place] % (Auto) 13.5 H, Eos % (Auto) 0.2, Baso % (Auto) 0.2, Neut # (Auto) 7.6, Lymph # (Auto) 1.1, [place] # (Auto) 1.4 H, Eos # (Auto) 0.0, Baso # (Auto) 0.0, Sodium 133 L, Potassium 4.0, Chloride 104, Carbon Dioxide 25, Anion Gap 8.0, BUN 10, Creatinine 0.70, Estimated Creat Clear 90, Estimated GFR 111, Est GFR ( Amer) 134, Glucose 107 H, Calcium 9.4, Troponin I < 0.01 I & O for Last 24 hours: Intake & Output 07/27/25 07/28/25 07/29/25 07/30/25 23:59 23:59 23:59 23:59 Intake Total 1270 / 1510 540 / 540 Output Total 1150 / 1150 225 / 225 Balance 120 / 360 315 / 315 Weight 98.384 kg 96.57 kg Constitutional Constitutional: no acute distress, average body habitus, chronically ill appearing and cooperative *Routine HEENT Exam Head: Present normocephalic Eye: Present EOMI and PERRL ENT: Present mucous membranes moist *Routine Neck Exam Neck: Present supple; Absent lymphadenopathy *Routine Respiratory Exam Respiratory: Present CTA bilaterally and normal respiratory effort; Absent wheezes or crackles *Routine Cardiovascular Exam Cardiovascular: Present RRR *Routine Abdominal Exam Abdominal: Present soft and normoactive bowel sounds; Absent tenderness or distended Comments: Ventral hernia *Routine Rectal Exam Patient deferred: visual exam *Routine Exam Patient deferred: penile exam *Routine Extremities Exam Extremities: Absent cyanosis, clubbing or edema *Routine Skin Exam Skin: Present intact, dry and warm; Absent rash *Routine Neurological Exam Neurological: Present alert, oriented X3, vision grossly intact, hearing grossly intact and normal speech Routine Psychiatric Exam Psychiatric: Present normal affect Results Data Completed and Pending Labs on day of discharge: Labs from last 24 hours 07/30/25 07/29/25 05:25 20:09 WBC 10.1 RBC 4.81 Hgb 15.2 Hct 44.8 MCV 93.1 MCH 31.6 H MCHC 33.9 RDW 12.9 Plt Count 99 L MPV 11.9 H Neut % (Auto) 75.2 Lymph % (Auto) 10.6 [place] % (Auto) 13.5 H Eos % (Auto) 0.2 Baso % (Auto) 0.2 Neut # (Auto) 7.6 Lymph # (Auto) 1.1 [place] # (Auto) 1.4 H Eos # (Auto) 0.0 Baso # (Auto) 0.0 Sodium 133 L Potassium 4.0 Chloride 104 Carbon Dioxide 25 Anion Gap 8.0 BUN 10 Creatinine 0.70 Estimated Creat Clear 90 Estimated GFR 111 Est GFR ( Amer) 134 Glucose 107 H Calcium 9.4 Troponin I < 0.01 < 0.01 DS: Diagnosis Discharge Diagnosis (1) Intractable abdominal pain: Status: Acute Code(s): R10.9 - Unspecified abdominal pain (2) Atrial fibrillation: Status: Acute Code(s): I48.91 - Unspecified atrial fibrillation Qualifiers: Atrial fibrillation type: unspecified chronic Qualified Code(s): I48.20 - Chronic atrial fibrillation, unspecified (3) Adrenal nodule: Status: Acute Code(s): E27.9 - Disorder of adrenal gland, unspecified (4) Thrombocytopenia: Status: Acute Code(s): D69.6 - Thrombocytopenia, unspecified Meds Home Medications and Allergies Home Medications ?Medication ?Instructions ?Recorded ?Confirmed ?Type apixaban 5 mg tablet (Eliquis) 5 mg PO BID 07/06/25 History escitalopram oxalate 10 mg tablet 10 mg PO DAILY 07/0607/29/25 History gabapentin 800 mg tablet 800 mg PO TID 07/06/2507/29 History hydroxyzine HCl 25 mg tablet 25 mg PO TID PRN Restless Leg(S) 07/06/25 07/29/25 History lisinopril 5 mg tablet 5 mg PO DAILY 07/06/2507/29 History terazosin 10 mg capsule 10 mg PO DAILY 07/06/2507/11 History thiamine mononitrate (vit B1) 100 100 mg PO DAILY 06/1007/29/25 History mg tablet (Vitamin B-1 (mononitrate)) metoprolol tartrate 25 mg tablet 25 mg PO BID #60 tabs 07/23/25 07/29/25 Rx oxycodone-acetaminophen 7.5 mg-325 1 tab PO Q8H PRN pa in #45 tabs 07/23/25 07/29/25 Rx mg tablet potassium chloride 20 mEq 20 meq PO QID 07/23/2507/29 History tablet,extended release methocarbamol 750 mg tablet 750 mg PO TID 07/29/25 History midodrine 5 mg tablet 10 mg PO TID PRN blood press ure 07/29/25 07/29/25 History mirtazapine 15 mg tablet 15 mg PO HS 07/29/25 5 History ropinirole 0.5 mg tablet 0.5 mg PO HS 07/29/25 History polyethylene glycol 3350 17 gram 17 g PO DAILY #30 ea 07/30/25 Rx oral powder packet (HealthyLax) promethazine 25 mg tablet 25 mg PO TID PRN nausea and 07/30/25 Rx vomiting #14 tabs New Prescriptions to Start Prescriptions: polyethylene glycol 3350 [HealthyLax] Yadi Lane promethazine [address] Allergies Allergy/AdvReac Type Severity Reaction Status Date / Time penicillin G Allergy Mild Rash Verified 07/23/25 13:36 Penicillins Allergy Mild Rash Verified 07/23/25 13:36 erythromycin base AdvReac Mild Unknown Verified 07/23/25 13:36 allergy reaction tetracycline AdvReac Mild Vomiting Verified 07/23/25 13:36 Discharge Plan Disposition Patient Disposition: Home, Self-Care Condition: Fair Follow up Plan Follow up with: Glen Mulligan II, MD [Staff Physician, Gastroenterology] - 08/17/25 11:30 am Mc Grande DO [Primary Care Provider, Family Practice] - 08/17/25 10:15 am Dominik Edmondson MD [Staff Physician, General Surgery] - Enter time for follow up Prescriptions/Medication Reconciliation: New polyethylene glycol 3350 [HealthyLax] 17 gram Powder In Packet 17 g PO DAILY Qty: 30 0RF promethazine 25 mg tablet 25 mg PO TID PRN (Reason: nausea and vomiting) Qty: 14 0RF Rx Instructions: take half to one tab q8h prn for nausea Continued oxycodone-acetaminophen 7.5-325 mg tablet 1 tab PO Q8H PRN (Reason: pain) Qty: 45 0RF metoprolol tartrate 25 mg tablet 25 mg PO BID Qty: 60 1RF gabapentin 800 mg tablet 800 mg PO TID Patient Comments: TAKE 1 TABLET BY MOUTH 3 TIMES A DAY hydroxyzine HCl 25 mg tablet 25 mg PO TID PRN (Reason: Restless Leg(S)) Patient Comments: TAKE 1 TABLET BY MOUTH THREE TIMES DAILY NEEDED FOR ANXIETY lisinopril 5 mg tablet 5 mg PO DAILY Patient Comments: TAKE 1 TABLET BY MOUTH EVERY DAY terazosin 10 mg capsule 10 mg PO DAILY Patient Comments: TAKE 1 CAPSULE BY MOUTH EVERY DAY escitalopram oxalate 10 mg tablet 10 mg PO DAILY Patient Comments: TAKE 1 TABLET BY MOUTH EVERY DAY thiamine mononitrate (vit B1) [Vitamin B-1 (mononitrate)] 100 mg tablet 100 mg PO DAILY Patient Comments: TAKE 1 TABLET BY MOUTH DIRECTED Eliquis 5 mg tablet 5 mg PO BID Patient Comments: TAKE 1 TABLET BY MOUTH TWICE DAILY potassium chloride 20 mEq tablet extended release 20 meq PO QID midodrine 5 mg tablet 10 mg PO TID PRN (Reason: blood pressure) methocarbamol 750 mg tablet 750 mg PO TID mirtazapine 15 mg tablet 15 mg PO HS ropinirole 0.5 mg tablet 0.5 mg PO HS Problem Reconciliation Problems Reviewed?: Yes Patient Discharge Instructions ACTIVITY: Continue current activity DIET: continue same diet Patient Instructions: DI for Atrial Fibrillation, DI for Abdominal Pain in Adults, Nausea and Vomiting in Adults Print Language: Hungarian Providers Primary Care Provider: Mc Grande Admit Provider: Mohan Guerra Attending Provider: Mohan Guerra
--- NOTE | 2025-07-30 10:22 | ECG_ITS ---
APPROVED REPORT Exam: Resting ECG HR:91 bpm ECG Measurements Heart Rate 91 AXES QRSd 109 QRS -12 QT 365 T 43 QTc 414 Conclusion ATRIAL FIBRILLATION INCOMPLETE RIGHT BUNDLE BRANCH BLOCK [90+ ms QRS DURATION, TERMINAL R IN V1/V2, 40+ ms S IN I/aVL/V4/V5/V6] ABNORMAL RHYTHM ECG UNCONFIRMED REPORT Electronically signed by : Deshawn Pruitt MD 07/31/2025 08:23:31
--- NOTE | 2025-07-30 11:30 | EXP.SURG.CON ---
History of Present Illness *Admission Date: 07/29/25 *Reason for visit:: Cholelithiasis/atrophic gallbladder *History of present illness: This is a 75-year-old gentleman seen in consultation for evaluation regarding radiographic evidence of biliary anomaly. He has no right upper quadrant pain. No fevers. No jaundice. The patient states that many years ago he underwent complicated cholecystectomy at which time some of the gallbladder was left . He states that the tissue was too thin like tissue paper . CBC from today reveals a normal white blood cell count. CMP dated July 29, [address] scan of abdomen/pelvis dated July 29, 2025 reviewed. Apparent large gallstone with contracted/atrophic gallbladder noted. 2 point centimeter likely adrenal nodule of undetermined significance. MRI of abdomen dated July 29, 2025 reviewed. Low signal intensity focus within the lumen of an apparent gallbladder consistent with gallstones noted. Undetermined adrenal gland anomaly and possible continuous/adjacent fluid collection. Forwarded from admission H&P: This is a 75-year-old male who has a past medical history significant for atrial fibrillation currently prescribed Eliquis, chronic pain, and hypertension who presents with a chief complaint of 10 out of 10 abdominal pain. Due to patient's symptoms, he presented to the emergency room for evaluation. While in the emergency room, EKG revealed a atrial fibrillation, QTc of 381, normal axis, and negative for STEMI. CT scan of the abdomen pelvis revealed 2.5 cm nodule arising from or intramedullary adjacent to the left adrenal gland the finding measured 2 cm on 07/06/2025 this was rapid enlargement concerning for potential malignancy, 4.5 cm fat containing left inguinal hernia, and enlarged prostate. Patient was given multiple pain medications without relief or minimization of his perceived pain. As a result hospital medicine was consulted for further management. During my evaluation of the patient, patient states his abdominal pain started earlier yesterday. He has been evaluated in the emergency room on multiple occasions for abdominal pain. He reports a skydiving accident where he has multiple's screws and plates in his back. Patient states he normally takes Percocet, methocarbamol, and gabapentin for his neuropathy and pain but this is not relieving his symptoms. He is currently denied any chest pain, lightheadedness, dizziness, fever, lightheadedness, brittle hair, brittle nails, loss of hair, feeling cold, nausea, vomiting, diarrhea, shortness of breath, or diarrhea. Additional pertinent vitals obtained including platelet count of 114, and blood glucose 127. [facility] Disclaimer: The information contained in this section may have been updated after the patient was seen, as this information can be updated by other users. Medical History Constipation Elevated bilirubin HTN (hypertension), malignant Surgical History History of cholecystectomy History of knee surgery Hx of decompression of ulnar nerve Social History Smoking Status: Current every day smoker tobacco type: cigarettes smoking status start date: 55 yo alcohol intake: former year quit: 2023 substance use type: denies use current occupational status: retired Travel in the last 8 weeks?: None Review of Systems *Neurologic Neurologic: Reports system reviewed and no additional complaints, except as documented Meds Home Medications and Allergies Home Medications ?Medication ?Instructions ?Recorded ?Confirmed ?Type apixaban 5 mg tablet (Eliquis) 5 mg PO BID 07/06/25 07/29/25 History escitalopram oxalate 10 mg tablet 10 mg PO DAILY 07/06/25 07/29/25 History gabapentin 800 mg tablet 800 mg PO TID 07/06/25 07/29/25 History hydroxyzine HCl 25 mg tablet 25 mg PO TID PRN Restless Leg(S) 07/06/25 07/29/25 History lisinopril 5 mg tablet 5 mg PO DAILY 07/06/25 07/29/25 History terazosin 10 mg capsule 10 mg PO DAILY 07/06/25 07/29/25 History thiamine mononitrate (vit B1) 100 100 mg PO DAILY 07/06/25 07/29/25 History mg tablet (Vitamin B-1 (mononitrate)) metoprolol tartrate 25 mg tablet 25 mg PO BID #60 tabs 07/23/25 07/29/25 Rx oxycodone-acetaminophen 7.5 mg-325 1 tab PO Q8H PRN pain #45 tabs 07/23/25 07/29/25 Rx mg tablet potassium chloride 20 mEq 20 meq PO QID 07/23/25 07/29/25 History tablet,extended release methocarbamol 750 mg tablet 750 mg PO TID 07/29/25 07/29/25 History midodrine 5 mg tablet 10 mg PO TID PRN blood pressure 07/29/25 07/29/25 History mirtazapine 15 mg tablet 15 mg PO HS 07/29/25 07/29/25 History ropinirole 0.5 mg tablet 0.5 mg PO HS 07/29/25 07/29/25 History polyethylene glycol 3350 17 gram 17 g PO DAILY #30 ea 07/30/25 Rx oral powder packet (HealthyLax) promethazine 25 mg tablet 25 mg PO TID PRN nausea and 07/30/25 Rx vomiting #14 tabs New Prescriptions to Start Prescriptions: polyethylene glycol 3350 [HealthyLax] Yadi [address] promethazine [address] Allergies Allergy/AdvReac Type Severity Reaction Status Date / Time penicillin G Allergy Mild Rash Verified 07/23/25 13:36 Penicillins Allergy Mild Rash Verified 07/23/25 13:36 erythromycin base AdvReac Mild Unknown Verified 07/23/25 13:36 allergy reaction tetracycline AdvReac Mild Vomiting Verified 07/23/25 13:36 Exam (Inpt) Vital signs and Labs for Last 24 Hours: Temp Pulse Resp BP Pulse Ox O2 Del Method 98.3 F 96 H 20 127/76 97 Room Air 07/30/25 08:00 07/30/25 08:00 07/30/25 08:00 07/30/25 08:00 07/30/25 08:00 07/30/25 10:28 Laboratory Results - last 24 hr 07/29/25 20:09: Troponin I < 0.01 07/30/25 05:25: WBC 10.1, RBC 4.81, Hgb 15.2, Hct 44.8, MCV 93.1, MCH 31.6 H, MCHC 33.9, RDW 12.9, Plt Count 99 L, MPV 11.9 H, Neut % (Auto) 75.2, Lymph % (Auto) 10.6, [place] % (Auto) 13.5 H, Eos % (Auto) 0.2, Baso % (Auto) 0.2, Neut # (Auto) 7.6, Lymph # (Auto) 1.1, [place] # (Auto) 1.4 H, Eos # (Auto) 0.0, Baso # (Auto) 0.0, Sodium 133 L, Potassium 4.0, Chloride 104, Carbon Dioxide 25, Anion Gap 8.0, BUN 10, Creatinine 0.70, Estimated Creat Clear 90, Estimated GFR 111, Est GFR ( Amer) 134, Glucose 107 H, Calcium 9.4, Troponin I < 0.01 I & O for Labs for Last 24 Hours: Intake & Output 07/27/25 07/28/25 07/29/25 07/30/25 11:59 11:59 11:59 11:59 Intake Total 1000 / 1000 810 / 810 Output Total 200 / 200 1175 / 1175 Balance 800 / 800 -365 / -365 Weight 216 lb 14.4 oz 212 lb 14.4 oz Constitutional: no acute distress Respiratory: Absent respiratory distress Results Labs 07/30/25 05:25 07/30/25 05:25 Labs: Laboratory Results - last 24 hr 07/29/25 20:09: Troponin I < 0.01 07/30/25 05:25: WBC 10.1, RBC 4.81, Hgb 15.2, Hct 44.8, MCV 93.1, MCH 31.6 H, MCHC 33.9, RDW 12.9, Plt Count 99 L, MPV 11.9 H, Neut % (Auto) 75.2, Lymph % (Auto) 10.6, [place] % (Auto) 13.5 H, Eos % (Auto) 0.2, Baso % (Auto) 0.2, Neut # (Auto) 7.6, Lymph # (Auto) 1.1, [place] # (Auto) 1.4 H, Eos # (Auto) 0.0, Baso # (Auto) 0.0, Sodium 133 L, Potassium 4.0, Chloride 104, Carbon Dioxide 25, Anion Gap 8.0, BUN 10, Creatinine 0.70, Estimated Creat Clear 90, Estimated GFR 111, Est GFR ( Amer) 134, Glucose 107 H, Calcium 9.4, Troponin I < 0.01 Assessment and Plan *Assessment and plan (1) Gallstone: Status: Acute Qualifiers: Cholecystitis presence: without cholecystitis Biliary obstruction: without biliary obstruction Qualified Code(s): K80.20 - Calculus of gallbladder without cholecystitis without obstruction Category: Medical Code(s): K80.20 - Calculus of gallbladder without cholecystitis without obstruction Plan: Patient reports remote history of complex partial cholecystectomy. Radiographic findings consistent with atrophic gallbladder and gallstone somewhat confounded by this history. He currently has no evidence of cholecystitis or associated inflammatory response. He has no right upper quadrant pain. His LFTs are normal. Any attempts at further cholecystectomy completion are seemingly unwarranted. Risks associated with any possible intervention likely outweigh potential benefits. (2) Adrenal nodule: Status: Acute Category: Medical Code(s): E27.9 - Disorder of adrenal gland, unspecified Plan: Further evaluation (outside facility referrals, etc.) deferred to the primary service. The patient will need very short-term follow-up at a tertiary facility capable of evaluation and management of adrenal nodules/masses.
[2025-07-30 11:33] VITALS: BP 96/65; PULSE 71; RESP 18; TEMP 36.9; O2SAT 93
[2025-07-30 12:00] VITALS: PULSE 130
[2025-08-01 11:10] LABS: Cortisol,AM 20.9 ug/dL (6.2-19.4)
--- NOTE | 2025-08-02 10:16 | SW/DCPLANNER ---
Spoke with patient on the phone. Patient stated that he is doing good. Patient stated that he is aware of his upcoming appointments. Patient stated that he was able to get his new medicine picked up at clinic pharmacy. Patient stated that he has no concerns or questions at this time. José Miguel Briseno
== END 2025-07-30 13:47 | disposition home or self-care (01) ==
LOC: ER 05:12 → 2ND 05:18
PROVIDERS: Nurse Practitioner Family; Admitting Provider Student in an Organized Health Care Education/Training Program; Emergency Provider Emergency Medicine; PCP Internal Medicine; Visit Provider Student in an Organized Health Care Education/Training Program
DX: K80.20 Calculus of gallbladder without cholecystitis without obstruction (principal); E27.9 Disorder of adrenal gland, unspecified; I48.20 Chronic atrial fibrillation, unspecified; D69.6 Thrombocytopenia, unspecified; N28.1 Cyst of kidney, acquired; N40.0 Benign prostatic hyperplasia without lower urinary tract symptoms; K40.90 Unilateral inguinal hernia, without obstruction or gangrene, not specified as recurrent; I10 Essential (primary) hypertension; Z90.49 Acquired absence of other specified parts of digestive tract; F17.210 Nicotine dependence, cigarettes, uncomplicated
CPT/HCPCS: 36415; 74174; 74183; 76376; 80048; 80053; 81001; 82533; 82627; 83605; 83690; 84484; 85025; 85610; 86803; 87389; 93005; 99285; A9576; G0378; J1171; J1885; J2405; J2550; J2765; J7120; Q9967

== ENCOUNTER 2025-08-11 09:39 | Outpatient (CLI) | payer MEDICARE, SELFPAY ==
[2025-08-11 10:11] LABS: Hematocrit 43.3 % (42.0-52.0); Hemoglobin 14.3 g/dL (14.1-18.0); Immature Granulocytes % 1.2 %; Mean Corpuscular HGB Conc 33.0 g/dL (31.8-35.4); Mean Corpuscular Hemoglobin 31.6 pg (27.0-31.2); Mean Corpuscular Volume 95.8 fl (80-94); Nucleated Red Blood Cells % 0 %; Platelet Count 219 K/mm3 (142-424); Red Blood Count 4.52 M/mm3 (4.60-6.20); Red Cell Distribution Width-SD 44.9 fL; White Blood Count 7.7 K/mm3 (4.8-10.8)
[2025-08-11 10:40] LABS: Albumin Level 3.9 g/dl (3.5-5.0); Chloride 107 mmol/L (98-107); Potassium 5.0 mmoL/L (3.5-5.1); Sodium 142 mmol/L (136-145)
[2025-08-11 10:43] LABS: Alanine Aminotransferase 27 U/L (12-78); Albumin/Globulin Ratio 1.3 (1.1-1.8); Alkaline Phosphatase 119 U/L (38-126); Amylase 57 U/L (30-110); Anion Gap 15.0 mEq/L (5-15); Aspartate Amino Transferase 29 U/L (17-59); Bilirubin,Total 0.3 mg/dl (0.2-1.3); Blood Urea Nitrogen 18 mg/dl (9-20); Calcium 9.3 mg/dl (8.4-10.2); Carbon Dioxide 25 mmol/L (22.0-30.0); Creatinine,Serum 0.80 mg/dl (0.66-1.25); Estimated Glomerular Filt Rate 95 ml/min (>60); GFR (African American) 115 ML/MIN (>60); Globulin 3.0 g/dL (1.3-3.2); Glucose 100 mg/dl (74-100); Lipase 76 U/L (23-300); Total Protein,Serum 6.9 g/dl (6.3-8.2)
[2025-08-11 11:18] LABS: Hepatitis C Ab Qual. W/ RFX NEGATIVE (Negative)
== END 2025-08-11 23:59 | disposition home or self-care (01) ==
LOC: LAB 09:40
PROVIDERS: PCP Internal Medicine; Visit Provider Surgery
DX: K80.20 Calculus of gallbladder without cholecystitis without obstruction (principal); Z11.59 Encounter for screening for other viral diseases
CPT/HCPCS: 36415; 80053; 82150; 83690; 85025; 86803

== ENCOUNTER 2025-08-18 11:31 | Outpatient (CLI) | payer MEDICARE, SELFPAY ==
--- NOTE | 2025-08-18 11:34 | XR_ITS ---
FINAL REPORT CLINICAL HISTORY: Neck/shoulder pain FINDINGS: LEFT SHOULDER 3 views of the left shoulder were obtained. There is no acute fracture or dislocation. There is mild to moderate glenohumeral degenerative change with significant widening of the AC joint. Acromion is 2 shaft width inferior to the distal clavicle. AC joint measures 2.3 cm. Visualized joint spaces are normally aligned. Soft tissues are unremarkable. IMPRESSION: Significant widening of the AC joint. Reviewed, Interpreted and Dictated by Lazaro Malave MD Transcribed by Sabine Ochoa Authenticated and [facility]
--- NOTE | 2025-08-18 11:34 | XR_ITS ---
FINAL REPORT CLINICAL HISTORY: Neck/shoulder pain FINDINGS: CERVICAL SPINE SERIES Three views demonstrate no acute fracture. Advanced vascular calcification is seen at the carotid bifurcations, left greater than right. There are prominent anterior osteophytes and small posterior osteophytes at C2-3 and C3-4. The vertebral body demonstrates normal height.. There is no malalignment. IMPRESSION: Degenerative changes without acute process. Reviewed, Interpreted and Dictated by Lazaro Malave MD Transcribed by Sabine Ochoa Authenticated and . [facility]
--- NOTE | 2025-08-18 14:11 | MR_ITS ---
FINAL REPORT CLINICAL HISTORY: lumbar surgery 4 years ago low back pain bilateral foot tingling COMPARISON: None FINDINGS: Multiplanar MR imaging of the lumbar spine was performed without contrast. There has been a posterior and interbody fusion performed at the L5-S1 level. On the sagittal T2-weighted images, there is abnormal decreased signal in the L2-3 through L5-S1 lumbar discs. The vertebrae are of normal height. The vertebral alignment is normal. T12-L1: There is no significant canal stenosis or neural foraminal narrowing. L1-2: There is no significant canal stenosis or neural foraminal narrowing. L2-3: There is a mild to moderate annular bulge present with mild to moderate bilateral neural foraminal narrowing. L3-4: A moderate annular bulge is present with moderate bilateral neural foraminal narrowing. L4-5: A moderate annular bulge is present with endplate hypertrophy, bilateral facet hypertrophy, and moderate bilateral neural foraminal narrowing. L5-S1: This level has been fused. Endplate hypertrophy is present, with moderate bilateral neural foraminal narrowing. IMPRESSION: Multilevel lumbar degenerative changes present, with a prior posterior and interbody fusion at the L5-S1 level. Findings are most pronounced at the L4-5 level. Reviewed, Interpreted and Dictated by Lazaro Malave MD Transcribed by Winter Pappas Authenticated and . [facility]
== END 2025-08-18 23:59 | disposition home or self-care (01) ==
LOC: RAD 11:32
PROVIDERS: PCP Internal Medicine; Visit Provider Anesthesiology
DX: M47.816 Spondylosis without myelopathy or radiculopathy, lumbar region (principal); M47.812 Spondylosis without myelopathy or radiculopathy, cervical region; M19.012 Primary osteoarthritis, left shoulder; Z98.1 Arthrodesis status
CPT/HCPCS: 72040; 72148; 73030

== ENCOUNTER 2025-08-20 14:16 | Outpatient (CLI) | payer MEDICARE, SELFPAY ==
--- NOTE | 2025-08-20 14:30 | CA_ITS ---
APPROVED REPORT EXAM: Comprehensive 2D, Doppler, and color-flow Echocardiogram Traveling Representative: Carolina Balbuena CRT Ht: 6 ft 0 in Wt: 223lbs BSA: 2.23 BP: 118/76 mmHg Indications: afib, chf,htn, edema 2D Dimensions LA Volume 53.60 mL LA Volume Index 23.40 mL/m2 (M/F) 16-34 M-Mode Dimensions RVDd 3.24 cm (0.9-2.6) LA Diam 3.13 cm (1.9-4.0) LVDd 5.47 cm (3.5-5.7) LVDs 4.25 cm (3.5-5.7) IVSd 1.60 cm (0.6-1.1) PWd 0.42 cm (0.6-1.1) EF (Teich) 44.50% FS 22.30% EDV (Teich) 145.60 mL TAPSE 2.39 (<1.7) ESV (Teich) 80.80 mL Aortic Valve AI PHT 613.00 ms AO Peak GR. 10.40 mmHg Tricuspid Valve TR P. Velocity 281.00 cm/s RAP Estimate 10.00 mmHg RVSP 41.50 mmHg Left Ventricle The left ventricle is normal size. Left ventricular systolic function is normal. The left ventricular ejection fraction is within the normal range. There is normal left ventricular wall thickness. There is normal LV segmental wall motion. The left ventricular diastolic function is normal. LVEF is 55% Right Ventricle The right ventricle is normal size. The right ventricular systolic function is normal. Atria Left atrium is mildly dilated. Right atrium is mildly dilated. There is no color Doppler evidence of interatrial shunt. Aortic Valve The aortic valve is mildly thickened. There is no hemodynamically significant aortic valvular stenosis. Mild aortic regurgitation is present. Mitral Valve The mitral valve is normal in structure. No evidence of mitral valve stenosis. Trace mitral regurgitation is present. Tricuspid Valve The tricuspid valve leaflets are thin and pliable. Trace tricuspid regurgitation. There is insufficient TR jet to estimate RVSP. Pulmonic Valve The pulmonary valve is grossly normal in structure. Trace pulmonic valve regurgitation is present. Great Vessels The aortic root is normal in size. IVC is normal in size and collapses >50% with inspiration. Pericardium There is no pericardial effusion. Other Information Study Quality: Fair Conclusion Normal biventricular systolic function. Biatrial dilation. Mild AI. Electronically signed by : Dina Hsu MD 08/29/2025 16:23:00
== END 2025-08-20 23:59 | disposition home or self-care (01) ==
LOC: RT 14:17
PROVIDERS: PCP Internal Medicine; Visit Provider Internal Medicine
DX: I35.1 Nonrheumatic aortic (valve) insufficiency (principal); I50.9 Heart failure, unspecified
CPT/HCPCS: 93306